=== PATIENT | female | born 1965 | race African-American/Black ===

== ENCOUNTER 2017-07-05 06:30 | Emergency (ER) | payer MEDICARE, MEDICAID ==
[2017-07-05] MEDS ORDERED: oxyCODONE/Acetamin 5/325 MG* TAB PO ONE (07:23)
--- NOTE | 2017-07-05 08:31 | RAD ---
Indication: Left flank pain, left lower quadrant pain. CT of the abdomen and pelvis was performed without oral and IV contrast administration. Coronal and sagittal reconstructed images were obtained. Lung bases demonstrate no pleural fluid, nodules or masses. It is normal size without evidence of pericardial effusion. Liver is normal in size. No focal lesions or intrahepatic ductal dilatation. The gallbladder demonstrates no calcified gallstones. No pericholecystic fluid or wall thickening is noted. Spleen is normal in size. Pancreas demonstrates no mass or pancreatic ductal dilatation. Common duct is not dilated. No adrenal lesions are noted. The kidneys demonstrates no hydronephrosis although nonobstructing calculi are noted in the lower pole of the right kidney. Atherosclerotic aorta is noted. No dilated loops of bowel are noted. CT of the pelvis demonstrates: To be filled with stool. No dilated loops of bowel are noted. No hernias are noted. No free fluid is identified. Appendix is visualized and is normal. IMPRESSION: No evidence of obstructive uropathy is noted. Colon is filled with stool. No abnormal masses or fluid collections are noted.
--- NOTE | 2017-07-05 08:34 | RAD ---
Indication: Left flank pain. CT of the lumbar spine was obtained in the axial plane. Sagittal and coronal reconstructed images were obtained. The vertebral bodies appear normal in height. No evidence of fracture is noted. No evidence of facet arthropathy is noted. No fractures noted. Vertebral bodies appear normal in height and alignment. Transverse processes are unremarkable. No fracture is noted. No retroperitoneal adenopathy is noted. IMPRESSION: No fracture of lumbar spine is noted.
[2017-07-05 08:39] LABS: Urine Bacteria Absent (Absent); Urine Bilirubin Negative (Negative); Urine Glucose 2+(150 mg/dL) (Negative); Urine Nitrite Negative (Negative)
[2017-07-05 09:07] LABS: ALT 18 U/L (7-52); AST 23 U/L (13-39); Albumin 3.7 g/dL (3.2-5.2); Alkaline Phosphatase 58 U/L (34-104); Blood Urea Nitrogen 22 mg/dL (6-24); C Reactive Protein 19.58 mg/L (< 5.00); CO2 Carbon Dioxide 16 mmol/L (22-32); EGFR African American 110.7 (>60); EGFR Non-African American 86.1 (>60); Globulin 3.2 g/dL (2-4); Glucose 155 mg/dL (70-100); Lipase < 10 U/L (11.0-82.0); Total Protein 6.9 g/dL (6.4-8.9)
[2017-07-05 09:23] LABS: Anion Gap 10 mmol/L (2-11); Chloride 109 mmol/L (101-111); Sodium 135 mmol/L (133-145)
[2017-07-05] MEDS ORDERED: Ketorolac INJ* 30 MG/ML 1 ML VIAL IV PUSH ONE (09:25)
[2017-07-05] MEDS ORDERED: Morphine INJ* 4 MG/ML 1 ML CARPUJECT IV ONE (09:25)
[2017-07-05] MEDS ORDERED: Orphenadrine Citrate IV* 30 MG/ML 2 ML VIAL IV ONE (09:25)
[2017-07-05] MEDS ORDERED: Ondansetron INJ* 2 MG/ML VIAL IV ONE ×2 (10:16→13:21)
[2017-07-05] MEDS ORDERED: NS 0.9% 1000 ML* 1,000 ML IV ONE (10:16)
[2017-07-05] MEDS ORDERED: Ondansetron INJ* 2 MG/ML VIAL ONE (10:17)
[2017-07-05 10:36] LABS: Add Diff/Slide Review? Slide Review Added; Comments Flag Yes; Hematocrit 35 % (35-47); Mean Corpuscular HGB Conc 32 g/dl (31-36); Mean Corpuscular Hemoglobin 25 pg (27-31); Mean Corpuscular Volume 77 fL (80-97); Mean Platelet Volume 8 um3 (7.4-10.4); Red Blood Count 4.47 10^6/ul (4.0-5.4); Red Cell Distribution Width 20 % (10.5-15); White Blood Count 14.6 10^3/ul (3.5-10.8)
[2017-07-05 13:49] VITALS: BP 115/76
--- NOTE | 2017-07-05 18:02 | ED ---
Michelle Muse Thomas, scribed for Sonny Mary MD on 07/05/17 at 0728 . Back Pain - HPI Summary HPI Summary: The pt is a 52 y/o F BIBA and c/o left flank pain with sudden onset yesterday at 16:30. The patient was lifting a mattress with a friend when the pain suddenly began. She also complains of LLQ abd pain and L hip pain, although these pains have onset after her back pain. The pain is constant. The pain is rated 10/10. The pain is aggravated by movement. It is alleviated by nothing. The patient has treated the pain with Ibuprofen 800mg yesterday at 16:30 and a heating pad as well. Pt additionally c/o R leg numbness. She denies prior back injuries. She is on Lisinopril, Glipizide, and Metformin. PMHx: DM, HTN, HLD. PSHx: facial repair. SHx: current smoker, no alcohol, no drugs. FHx: DM, HTN. - History of Current Complaint Chief Complaint: EDBackInjuryPain Stated Complaint: BACK PAIN Time Seen by Provider: 07/05/17 07:08 Hx Obtained From: Patient Onset/Duration: Sudden Onset, Lasting Hours - onset yesterday at 16:30, Still Present Onset/Duration: Still Present Timing: Constant Back Pain Location: Is Discrete @ - L flank Severity Currently: Severe Pain Intensity: 10 Pain Scale Used: 0-10 Numeric Aggravating Symptom(s): Movement Alleviating Symptom(s): Nothing Associated Signs And Symptoms: Positive: Numbness - in her L leg, Other - LLQ abd pain, L hip pain - Allergies/Home Medications Allergies/Adverse Reactions: Allergies Allergy/AdvReac Type Severity Reaction Status Date / Time Aspirin Allergy Rash Verified 07/05/17 06:47 Home Medications: Home Medications Carisoprodol TAB* [Soma TAB*] 350 mg PO TID PRN 07/05/17 [History Confirmed ] glipiZIDE TAB.XL* [Glucotrol XL*] 5 mg PO QAM 07/05/17 [History Confirmed ] metFORMIN* [Glucophage 500 MG TAB *] 500 mg PO BID 07/05/17 [History Confirmed 07/05/17] PMH/Surg Hx/FS Hx/Imm Hx Previously Healthy: No Endocrine/Hematology History: Reports: Hx Diabetes Cardiovascular History: Reports: Hx Hypercholesterolemia, Hx Hypertension Musculoskeletal History: Reports: Other Musculoskeletal History - shoulder surgery - Surgical History Surgery Procedure, Year, and Place: Facial repair Infectious Disease History: Yes Infectious Disease History: Denies: Traveled Outside the [place] in Last 30 Days - Family History Known Family History: Positive: Hypertension, Diabetes - Social History Occupation: Employed Full-time Alcohol Use: None Hx Substance Use: No Substance Use Type: Reports: None Hx Tobacco Use: Yes Smoking Status (MU): Current Every Day Smoker Review of Systems Negative: Fever Positive: Abdominal Pain - LLQ Positive: Other - L flank pain, L hip pain Positive: Numbness - in L leg All Other Systems Reviewed And Are Negative: Yes Physical Exam - Summary Physical Exam Summary: VITAL SIGNS: Reviewed. GENERAL: Patient is a well-developed and nourished female who is lying comfortable in the stretcher. Patient is not in any acute respiratory distress. HEAD AND FACE: No signs of trauma. No ecchymosis, hematomas or skull depressions. No sinus tenderness. EYES: PERRLA, EOMI x 2, No injected conjunctiva, no nystagmus. EARS: Hearing grossly intact. Ear canals and tympanic membranes are within normal limits. MOUTH: Oropharynx within normal limits. NECK: Supple, trachea is midline, no adenopathy, no JVD, no carotid bruit, no c- spine tenderness, neck with full ROM. CHEST: Symmetric, no tenderness at palpation LUNGS: Clear to auscultation bilaterally. No wheezing or crackles. CVS: Regular rate and rhythm, S1 and S2 present, no murmurs or gallops appreciated. ABDOMEN: She has left flank pain. She has LLQ tenderness. She has left paraspinal muscle tenderness. Soft. No signs of distention. No rebound no guarding, and no masses palpated. Bowel sounds are normal. EXTREMITIES: FROM in all major joints, no edema, no cyanosis or clubbing. NEURO: Alert and oriented x 3. No acute neurological deficits. Speech is normal and follows commands. SKIN: Dry and warm Triage Information Reviewed: Yes Vital Signs On Initial Exam: Initial Vitals Temp Pulse Resp BP Pulse Ox 98.8 F 70 16 173/65 97 07/05/17 06:34 07/05/17 06:34 07/05/17 06:34 07/05/17 06:34 07/05/17 06:34 Vital Signs Reviewed: Yes - [place] Coma Scale Coma Scale Total: 15 Diagnostics - Vital Signs Vital Signs Temp Pulse Resp BP Pulse Ox 07/05/17 06:38 71 97 07/05/17 06:36 173/65 07/05/17 06:34 98.8 F 70 16 173/65 97 - Laboratory Lab Results: Lab Results 07/05/17 07/05/17 07/05/17 Range/Units 07:35 08:14 10:15 WBC 14.6 H (3.5-10.8) 10^3/ul RBC 4.47 (4.0-5.4) 10^6/ul Hgb 11.0 L (12.0-16.0) g/dl Hct 35 (35-47) % MCV 77 L (80-97) fL MCH 25 L (27-31) pg MCHC 32 (31-36) g/dl RDW 20 H (10.5-15) % Plt Count 328 (150-450) 10^3/ul MPV 8 (7.4-10.4) um3 Neut % (Auto) 84.5 H (38-83) % Lymph % (Auto) 4.2 L (25-47) % [place] % (Auto) 11.0 H (1-9) % Eos % (Auto) 0 (0-6) % Baso % (Auto) 0.3 (0-2) % Absolute Neuts (auto) 12.4 H (1.5-7.7) 10^3/ul Absolute Lymphs (auto) 0.6 L (1.0-4.8) 10^3/ul Absolute Monos (auto) 1.6 H (0-0.8) 10^3/ul Absolute Eos (auto) 0 (0-0.6) 10^3/ul Absolute Basos (auto) 0 (0-0.2) 10^3/ul Absolute Nucleated RBC 0 10^3/ul Nucleated RBC % 0 Sodium 135 (133-145) mmol/L Potassium 4.0 (3.5-5.0) mmol/L Chloride 109 (101-111) mmol/L Carbon Dioxide 16 L (22-32) mmol/L Anion Gap 10 (2-11) mmol/L BUN 22 (6-24) mg/dL Creatinine 0.71 (0.51-0.95) mg/dL Est GFR ( Amer) 110.7 (>60) Est GFR (Non-Af Amer) 86.1 (>60) BUN/Creatinine Ratio 31.0 H (8-20) Glucose 155 H (70-100) mg/dL Calcium 9.0 (8.6-10.3) mg/dL Total Bilirubin 0.20 (0.2-1.0) mg/dL AST 23 (13-39) U/L ALT 18 (7-52) U/L Alkaline Phosphatase 58 (34-104) U/L C-Reactive Protein 19.58 H (< 5.00) mg/L Total Protein 6.9 (6.4-8.9) g/dL Albumin 3.7 (3.2-5.2) g/dL Globulin 3.2 (2-4) g/dL Albumin/Globulin Ratio 1.2 (1-3) Lipase < 10 L (11.0-82.0) U/L Urine Color Yellow Urine Appearance Clear Urine pH 6.0 (5-9) Ur Specific [place] 1.021 (1.010-1.030) Urine Protein 1+(30 mg/dl) H (Negative) Urine Ketones Negative (Negative) Urine Blood Negative (Negative) Urine Nitrate Negative (Negative) Urine Bilirubin Negative (Negative) Urine Urobilinogen Negative (Negative) Ur Leukocyte Esterase Negative (Negative) Urine WBC (Auto) Trace(0-5/hpf) (Absent) Urine RBC (Auto) Trace(0-2/hpf) (Absent) Ur Squamous Epith Cells Present H (Absent) Urine Bacteria Absent (Absent) Urine Glucose 2+(150 mg/dl) H (Negative) Result Diagrams: 07/05/17 10:15 07/05/17 08:14 Lab Statement: Any lab studies that have been ordered have been reviewed, and results considered in the medical decision making process. - CT CT L-Spine CT Interpretation: No Acute Changes - CT L-Spine shows no fracture of lumbar spine is noted. ED physician has read this report and agrees. CT Interpretation Completed By: Radiologist CT Abd/Pel CT Interpretation: No Acute Changes - CT Abd/Pel shows no evidence of obstructive uropathy is noted. Colon is filled with stool. No abnormal masses or fluid collections are noted. ED physician has read this report and agrees. CT Interpretation Completed By: Radiologist Re-Evaluation - Re-Evaluation First Eval Re-Evaluation Time: 12:00 Change: Unchanged Comment: The patient's daughter is present. The patient and her daughter were informed of the CT results. We discussed discharge plans and follow up. Back Pain Course/Dx - Course Assessment/Plan: The pt is a 52 y/o F BIBA and c/o left flank pain with sudden onset yesterday at 16:30. The patient was lifting a mattress with a friend when the pain suddenly began. She also complains of LLQ abd pain and L hip pain, although these pains have onset after her back pain. The pain is constant. The pain is rated 10/10. The pain is aggravated by movement. It is alleviated by nothing. The patient has treated the pain with Ibuprofen 800mg yesterday at 16: 30 and a heating pad as well. Pt additionally c/o R leg numbness. She denies prior back injuries. She is on Lisinopril, Glipizide, and Metformin. PMHx: DM, HTN, HLD. PSHx: facial repair. SHx: current smoker, no alcohol, no drugs. FHx: DM, HTN. Test results are without significant abnormalities except WBC 14.6 without any bands, Hgb 11.0, glucose 155, CRP 19.58. UA is negative for UTI. I had a difficult time examining the patient, therefore since the patient complains of LLQ pain I decided to do a CT Abd/Pel to rule out diverticulitis, kidney stones, and any other intraabdominal pathology. CT Abd/Pel shows no evidence of obstructive uropathy is noted. Colon is filled with stool. No abnormal masses or fluid collections are noted. ED physician has read this report and agrees. However, the patient reported the back pain had onset after heavy lifting, therefore I ordered a CT L-spine. In the ED course, the patient was negative for UTI. The patient was given IV fluids, Zofran, morphine, and Toradol for the pain. After these medications, the patient is ambulating and tolerating PO intake. Therefore, the patient will be discharged home with follow up by PCP. I believe the symptoms are more secondary to lumbar strain. The patient was instructed to return to the emergency room if any new or worsening symptoms. The patient is hemodynamically stable and alert and oriented x3. - Diagnoses Differential Diagnosis/HQI/PQRI: Positive: Compressive Cord Syndrome, Fracture, Herniated Disc, Osteoporosis, Renal Colic, Strain, Sprain Provider Diagnoses: Lower back pain, Abdominal pain Discharge - Discharge Plan Condition: Stable Disposition: HOME Prescriptions: Cyclobenzaprine TAB* [Flexeril 10 MG TAB*] 10 mg PO TID #12 tab HYDROcodone/ACETAMIN 5-325 MG* [[place] 5-325 TAB*] 1 tab PO Q8H PRN #12 tab MDD 4 PRN Reason: Pain Ibuprofen TAB* [Motrin TAB* 600 MG] 600 mg PO Q8H PRN #20 tab PRN Reason: Pain Ondansetron TAB* [Zofran 4 MG Tab*] 4 mg PO Q6H PRN #10 tab PRN Reason: Vomiting Patient Education Materials: Abdominal Pain (ED), Back Pain (ED) Forms: *Work Release Referrals: Andres Nguyen MD [Primary Care Provider] - 2 Days The documentation as recorded by the Michelle urias Thomas accurately reflects the service I personally performed and the decisions made by Usman davis Walter, MD.
== END 2017-07-05 13:47 | disposition home or self-care (01) ==
LOC: ED 06:30
DX: R10.32 Left lower quadrant pain (principal); F17.210 Nicotine dependence, cigarettes, uncomplicated; M54.5 Low back pain
CPT/HCPCS: 36415; 72131; 74176; 80053; 81003; 81015; 83690; 85025; 86140; 96374; 96375; 99285; A9270-GY; J1885; J2270; J2360; J2405

== ENCOUNTER 2017-07-06 08:51 | Inpatient (IN) | payer MEDICARE, MEDICAID ==
[2017-07-06] MEDS ORDERED: NS 0.9% 1000 ML* 1,000 ML IV ONE (10:57)
[2017-07-06] MEDS ORDERED: Ondansetron INJ* 2 MG/ML VIAL ONE (11:17)
[2017-07-06] MEDS ORDERED: Ondansetron INJ* 2 MG/ML VIAL IV ONE (11:25)
[2017-07-06 11:58] LABS: Hematocrit 35 % (35-47); Hemoglobin 11.3 g/dl (12.0-16.0); Mean Corpuscular HGB Conc 32 g/dl (31-36); Mean Corpuscular Hemoglobin 25 pg (27-31); Mean Corpuscular Volume 77 fL (80-97); Mean Platelet Volume 8 um3 (7.4-10.4); Red Blood Count 4.52 10^6/ul (4.0-5.4); Red Cell Distribution Width 20 % (10.5-15); White Blood Count 18.5 10^3/ul (3.5-10.8)
[2017-07-06 12:04] LABS: ALT 17 U/L (7-52); AST 15 U/L (13-39); Albumin 3.9 g/dL (3.2-5.2); Alkaline Phosphatase 74 U/L (34-104); Anion Gap 8 mmol/L (2-11); BUN/Creatinine Ratio 32.8 (8-20); Blood Urea Nitrogen 21 mg/dL (6-24); CO2 Carbon Dioxide 28 mmol/L (22-32); Calcium 9.4 mg/dL (8.6-10.3); Chloride 101 mmol/L (101-111); Creatine Kinase 57 U/L (10-223); EGFR African American 124.8 (>60); EGFR Non-African American 97.1 (>60); Globulin 3.7 g/dL (2-4); Glucose 179 mg/dL (70-100); Lipase < 10 U/L (11.0-82.0); Magnesium 2.2 mg/dL (1.9-2.7); Potassium 3.3 mmol/L (3.5-5.0); Sodium 137 mmol/L (133-145); Total Protein 7.6 g/dL (6.4-8.9)
[2017-07-06 12:05] LABS: Ammonia 45 mol/L (16-53)
[2017-07-06 12:10] LABS: B Type Natriuretic Peptide 152 pg/mL
[2017-07-06 12:32] LABS: Acetaminophen < 15 mcg/mL; Alcohol < 10 mg/dL (<10)
--- NOTE | 2017-07-06 13:12 | RAD ---
HISTORY: Altered mental status, elevated white blood cell count COMPARISONS: November 25, 2013 VIEWS: 1: frontal portable view of the chest at 12:55 PM FINDINGS: LINES AND TUBES: None. CARDIOMEDIASTINAL SILHOUETTE: The cardiomediastinal silhouette is normal for portable technique. PLEURA: The costophrenic angles are sharp. No pleural abnormalities are noted. LUNG PARENCHYMA: The lungs are clear. ABDOMEN: The upper abdomen is clear. There is no subphrenic gas. BONES AND SOFT TISSUES: No bone or soft tissue abnormalities are noted. IMPRESSION: NO ACTIVE CARDIOPULMONARY DISEASE.
[2017-07-06 13:24] LABS: Urine Bacteria Absent (Absent); Urine Bilirubin Negative (Negative); Urine Glucose 1+(50 mg/dL) (Negative); Urine Nitrite Negative (Negative)
[2017-07-06] MEDS ORDERED: Azithromycin IV(*) 500 MG in NS 0.9% 250 ML* 250 ML IVPB ONE (13:31)
[2017-07-06] MEDS ORDERED: cefTRIAXone(*) 1 GM in NS 0.9% 50 ML* 50 ML IVPB ONE (13:31)
--- NOTE | 2017-07-06 13:35 | ED ---
Yoandy Muse Angela, scribed for Sonny Morillo MD on 07/06/17 at 1038 . Complex/Multi-Sys Presentation - HPI Summary HPI Summary: This pt is a 52 y/o female BIBA presenting to [facility] c/o nausea and vomiting since yesterday. Yesterday, pt was seen in the ED for back and abd pain, and per daughter, pt was lethargic. Pt was given pain medications (oxycodone, clyclobenzaprine, ibuprofen, and Zofran), which she states has been making her vomit and has had confusion since then. Although, she notes her pain was alleviated. She reports she was incoherent and this is the most awake she has been since yesterday. Pt's pain began 2 days ago (on Monday) at 1630 and describes left sided abd pain that radiates to her left leg after lifting a mattress. On Monday her mind was clear. Per daughter, pt vomited yesterday after she was discharged and had diarrhea throughout the past few days. Per son , pt was at her house yesterday and pt didn't remember this. Pt denies numbness , weakness in LE. Pt states taking Soma yesterday for her shoulders, and has been taking Soma for the past few months. PMHx: diabetes. - History Of Current Complaint Chief Complaint: EDNauseaVomitDiarrh Time Seen by Provider: 07/06/17 10:08 Hx Obtained From: Patient Onset/Duration: Lasting Days - 1 Timing: Days - 1 Associated Signs And Symptoms: Positive: Confusion, Nausea, Vomiting, Back Pain , Other - abd pain. Negative: Chest Pain - Allergies/Home Medications Allergies/Adverse Reactions: Allergies Allergy/AdvReac Type Severity Reaction Status Date / Time Aspirin Allergy Rash Verified 07/06/17 09:16 PMH/Surg Hx/FS Hx/Imm Hx Endocrine/Hematology History: Reports: Hx Diabetes Cardiovascular History: Reports: Hx Hypercholesterolemia, Hx Hypertension Musculoskeletal History: Reports: Other Musculoskeletal History - shoulder surgery - Surgical History Surgery Procedure, Year, and Place: Facial repair Infectious Disease History: No Infectious Disease History: Denies: Traveled Outside the [place] in Last 30 Days - Family History Known Family History: Positive: Hypertension, Diabetes - Social History Alcohol Use: None Hx Substance Use: No Substance Use Type: Reports: None Hx Tobacco Use: Yes Smoking Status (MU): Current Every Day Smoker Review of Systems Positive: Fatigue, Other - confusion. Negative: Fever, Chills Eyes: Negative Negative: Chest Pain Negative: Shortness Of Breath Positive: Abdominal Pain, Vomiting, Diarrhea, Nausea Genitourinary: Negative Positive: Other - back pain Skin: Negative Neurological: Other - incoherent Negative: Headache All Other Systems Reviewed And Are Negative: Yes Physical Exam - Summary Physical Exam Summary: General: well-appearing, no pain distress Skin: warm, color reflects adequate perfusion, dry Head: normal Eyes: EOMI, CARLIE ENT: normal Neck: supple, nontender Respiratory: CTA, breath sounds present Cardiovascular: RRR Abdomen: soft, mild tenderness in the LLQ. Bowel: present Musculoskeletal: strength/ROM intact. Tender in the low back on the left lumbar. Leg has good ROM. There is pain with hip flezion. Neurological: normal, sensory/motor intact, A&O x3. Motor strength is 5/5 in UE and LE bilaterally. Normal patellar reflexes. No sensation deficits. Psychological: affect/mood appropriate Triage Information Reviewed: Yes Vital Signs On Initial Exam: Initial Vitals Pulse Pulse Ox 74 94 07/06/17 08:59 07/06/17 08:59 Temperature: 99.3 F Respiratory rate: 16 Blood pressure: 178/78 Vital Signs Reviewed: Yes - [place] Coma Scale Coma Scale Total: 14 Diagnostics - Vital Signs Vital Signs Temp Pulse Resp BP Pulse Ox 07/06/17 09:00 99.3 F 73 16 192/75 96 07/06/17 08:59 74 94 - Laboratory Lab Results: Lab Results 07/06/17 07/06/17 07/06/17 Range/Units 11:37 11:37 11:37 WBC (3.5-10.8) 10^3/ul RBC (4.0-5.4) 10^6/ul Hgb (12.0-16.0) g/dl Hct (35-47) % MCV (80-97) fL MCH (27-31) pg MCHC (31-36) g/dl RDW (10.5-15) % Plt Count (150-450) 10^3/ul MPV (7.4-10.4) um3 Neut % (Auto) (38-83) % Lymph % (Auto) (25-47) % Will % (Auto) (1-9) % Eos % (Auto) (0-6) % Baso % (Auto) (0-2) % Absolute Neuts (auto) (1.5-7.7) 10^3/ul Absolute Lymphs (auto) (1.0-4.8) 10^3/ul Absolute Monos (auto) (0-0.8) 10^3/ul Absolute Eos (auto) (0-0.6) 10^3/ul Absolute Basos (auto) (0-0.2) 10^3/ul Absolute Nucleated RBC 10^3/ul Nucleated RBC % INR (Anticoag Therapy) 1.19 H (0.89-1.11) APTT 25.2 L (26.0-36.3) seconds Carbon Monoxide Screen (<4.0) % Sodium 137 (133-145) mmol/L Potassium 3.3 L (3.5-5.0) mmol/L Chloride 101 (101-111) mmol/L Carbon Dioxide 28 (22-32) mmol/L Anion Gap 8 (2-11) mmol/L BUN 21 (6-24) mg/dL Creatinine 0.64 (0.51-0.95) mg/dL Est GFR ( Amer) 124.8 (>60) Est GFR (Non-Af Amer) 97.1 (>60) BUN/Creatinine Ratio 32.8 H (8-20) Glucose 179 H (70-100) mg/dL Lactic Acid 1.3 (0.5-2.0) mmol/L Calcium 9.4 (8.6-10.3) mg/dL Magnesium 2.2 (1.9-2.7) mg/dL Total Bilirubin 0.30 (0.2-1.0) mg/dL AST 15 (13-39) U/L ALT 17 (7-52) U/L Alkaline Phosphatase 74 (34-104) U/L Ammonia (16-53) mol/L Total Creatine Kinase 57 (10-223) U/L CK-MB (CK-2) 1.7 (0.6-6.3) ng/mL Troponin I 0.00 (<0.04) ng/mL C-Reactive Protein 217.10 H (< 5.00) mg/L B-Natriuretic Peptide ( - 100) pg/mL Total Protein 7.6 (6.4-8.9) g/dL Albumin 3.9 (3.2-5.2) g/dL Globulin 3.7 (2-4) g/dL Albumin/Globulin Ratio 1.1 (1-3) Lipase < 10 L (11.0-82.0) U/L TSH 0.50 (0.34-5.60) mcIU/mL Urine Color Urine Appearance Urine pH (5-9) Ur Specific [place] (1.010-1.030) Urine Protein (Negative) Urine Ketones (Negative) Urine Blood (Negative) Urine Nitrate (Negative) Urine Bilirubin (Negative) Urine Urobilinogen (Negative) Ur Leukocyte Esterase (Negative) Urine WBC (Auto) (Absent) Urine RBC (Auto) (Absent) Ur Squamous Epith Cells (Absent) Urine Bacteria (Absent) Hyaline Casts (Absent) Urine Glucose (Negative) Salicylates Pending Acetaminophen < 15 mcg/mL Serum Alcohol < 10 (<10) mg/dL 07/06/17 07/06/17 07/06/17 Range/Units 11:37 11:37 12:45 WBC 18.5 H (3.5-10.8) 10^3/ul RBC 4.52 (4.0-5.4) 10^6/ul Hgb 11.3 L (12.0-16.0) g/dl Hct 35 (35-47) % MCV 77 L (80-97) fL MCH 25 L (27-31) pg MCHC 32 (31-36) g/dl RDW 20 H (10.5-15) % Plt Count 342 (150-450) 10^3/ul MPV 8 (7.4-10.4) um3 Neut % (Auto) 89.4 H (38-83) % Lymph % (Auto) 2.6 L (25-47) % Will % (Auto) 7.7 (1-9) % Eos % (Auto) 0 (0-6) % Baso % (Auto) 0.3 (0-2) % Absolute Neuts (auto) 16.5 H (1.5-7.7) 10^3/ul Absolute Lymphs (auto) 0.5 L (1.0-4.8) 10^3/ul Absolute Monos (auto) 1.4 H (0-0.8) 10^3/ul Absolute Eos (auto) 0 (0-0.6) 10^3/ul Absolute Basos (auto) 0.1 (0-0.2) 10^3/ul Absolute Nucleated RBC 0.01 10^3/ul Nucleated RBC % 0.1 INR (Anticoag Therapy) (0.89-1.11) APTT (26.0-36.3) seconds Carbon Monoxide Screen (<4.0) % Sodium (133-145) mmol/L Potassium (3.5-5.0) mmol/L Chloride (101-111) mmol/L Carbon Dioxide (22-32) mmol/L Anion Gap (2-11) mmol/L BUN (6-24) mg/dL Creatinine (0.51-0.95) mg/dL Est GFR ( Amer) (>60) Est GFR (Non-Af Amer) (>60) BUN/Creatinine Ratio (8-20) Glucose (70-100) mg/dL Lactic Acid (0.5-2.0) mmol/L Calcium (8.6-10.3) mg/dL Magnesium (1.9-2.7) mg/dL Total Bilirubin (0.2-1.0) mg/dL AST (13-39) U/L ALT (7-52) U/L Alkaline Phosphatase (34-104) U/L Ammonia 45 (16-53) mol/L Total Creatine Kinase (10-223) U/L CK-MB (CK-2) (0.6-6.3) ng/mL Troponin I (<0.04) ng/mL C-Reactive Protein (< 5.00) mg/L B-Natriuretic Peptide 152 H ( - 100) pg/mL Total Protein (6.4-8.9) g/dL Albumin (3.2-5.2) g/dL Globulin (2-4) g/dL Albumin/Globulin Ratio (1-3) Lipase (11.0-82.0) U/L TSH (0.34-5.60) mcIU/mL Urine Color Yellow Urine Appearance Cloudy Urine pH 6.0 (5-9) Ur Specific [place] 1.026 (1.010-1.030) Urine Protein 3+(>=500 mg/dl) H (Negative) Urine Ketones Trace H (Negative) Urine Blood 1+ H (Negative) Urine Nitrate Negative (Negative) Urine Bilirubin Negative (Negative) Urine Urobilinogen Negative (Negative) Ur Leukocyte Esterase Negative (Negative) Urine WBC (Auto) Trace(0-5/hpf) (Absent) Urine RBC (Auto) 3+(>10/hpf) H (Absent) Ur Squamous Epith Cells Present H (Absent) Urine Bacteria Absent (Absent) Hyaline Casts Present H (Absent) Urine Glucose 1+(50 mg/dl) H (Negative) Salicylates Acetaminophen mcg/mL Serum Alcohol (<10) mg/dL 07/06/17 Range/Units 12:45 WBC (3.5-10.8) 10^3/ul RBC (4.0-5.4) 10^6/ul Hgb (12.0-16.0) g/dl Hct (35-47) % MCV (80-97) fL MCH (27-31) pg MCHC (31-36) g/dl RDW (10.5-15) % Plt Count (150-450) 10^3/ul MPV (7.4-10.4) um3 Neut % (Auto) (38-83) % Lymph % (Auto) (25-47) % Will % (Auto) (1-9) % Eos % (Auto) (0-6) % Baso % (Auto) (0-2) % Absolute Neuts (auto) (1.5-7.7) 10^3/ul Absolute Lymphs (auto) (1.0-4.8) 10^3/ul Absolute Monos (auto) (0-0.8) 10^3/ul Absolute Eos (auto) (0-0.6) 10^3/ul Absolute Basos (auto) (0-0.2) 10^3/ul Absolute Nucleated RBC 10^3/ul Nucleated RBC % INR (Anticoag Therapy) (0.89-1.11) APTT (26.0-36.3) seconds Carbon Monoxide Screen < 4 (<4.0) % Sodium (133-145) mmol/L Potassium (3.5-5.0) mmol/L Chloride (101-111) mmol/L Carbon Dioxide (22-32) mmol/L Anion Gap (2-11) mmol/L BUN (6-24) mg/dL Creatinine (0.51-0.95) mg/dL Est GFR ( Amer) (>60) Est GFR (Non-Af Amer) (>60) BUN/Creatinine Ratio (8-20) Glucose (70-100) mg/dL Lactic Acid (0.5-2.0) mmol/L Calcium (8.6-10.3) mg/dL Magnesium (1.9-2.7) mg/dL Total Bilirubin (0.2-1.0) mg/dL AST (13-39) U/L ALT (7-52) U/L Alkaline Phosphatase (34-104) U/L Ammonia (16-53) mol/L Total Creatine Kinase (10-223) U/L CK-MB (CK-2) (0.6-6.3) ng/mL Troponin I (<0.04) ng/mL C-Reactive Protein (< 5.00) mg/L B-Natriuretic Peptide ( - 100) pg/mL Total Protein (6.4-8.9) g/dL Albumin (3.2-5.2) g/dL Globulin (2-4) g/dL Albumin/Globulin Ratio (1-3) Lipase (11.0-82.0) U/L TSH (0.34-5.60) mcIU/mL Urine Color Urine Appearance Urine pH (5-9) Ur Specific [place] (1.010-1.030) Urine Protein (Negative) Urine Ketones (Negative) Urine Blood (Negative) Urine Nitrate (Negative) Urine Bilirubin (Negative) Urine Urobilinogen (Negative) Ur Leukocyte Esterase (Negative) Urine WBC (Auto) (Absent) Urine RBC (Auto) (Absent) Ur Squamous Epith Cells (Absent) Urine Bacteria (Absent) Hyaline Casts (Absent) Urine Glucose (Negative) Salicylates Acetaminophen mcg/mL Serum Alcohol (<10) mg/dL Result Diagrams: 07/06/17 11:37 07/06/17 11:37 Lab Statement: Any lab studies that have been ordered have been reviewed, and results considered in the medical decision making process. - EKG 1111 Cardiac Rate: NL - 79 bpm EKG Rhythm: Sinus Rhythm ST Segment: Normal Ectopy: None EKG Interpretation: LVH Complex Multi-Symp Course/Dx Course Of Treatment: Pt is a 52 y/o female BIBA presenting to [facility] c/o nausea and vomiting since yesterday after given medications for abd pain and back pain (oxycodone, clyclobenzaprine, ibuprofen, and Zofran). Pt additionally had taken Soma at home, prescribed by PCP for months now. Medications reviewed. BP noted and advised to follow up with PCP. WILL TREAT URI/BRONCHITS SX WITH ABX. DUE TO ALTERED MENTAL STATE AND INCREASING WBC AND CRP; ADMIT HOSPITALIST. NO CRITICAL CARE TIME. - Diagnoses Provider Diagnoses: Altered mental state, Bronchitis, Low back pain Discharge - Discharge Plan Condition: Stable Disposition: ADMITTED TO [facility] Referrals: Andres Nguyen MD [Primary Care Provider] - The documentation as recorded by the Yoandy urias Angela accurately reflects the service I personally performed and the decisions made by me, Sonny Morillo MD.
[2017-07-06 13:36] LABS: Benzodiazepine Urine Screen None Detected (None Detect)
[2017-07-06 13:51] LABS: Salicylate < 2.50 mg/dL (<30)
[2017-07-06] MEDS ORDERED: Vancomycin(*) 1,250 MG in NS 0.9% 250 ML* 250 ML IVPB ONE (15:15)
[2017-07-06] MEDS ORDERED: Dextrose 50% Syringe 50 ML* 25 GM/50 ML SYRINGE IV PUSH PRN (15:19)
[2017-07-06] MEDS ORDERED: Metoprolol Tartrate TAB* 25 MG PO ONE (15:21)
[2017-07-06] MEDS ORDERED: Morphine INJ* 2 MG/ML 1 ML CARPUJECT IV PRN (15:22)
[2017-07-06] MEDS ORDERED: Magnesium CITRATE* 300 ML BTL PO ONE (15:38)
[2017-07-06] MEDS ORDERED: Gadoteridol* (CONTRAST) 279.3 MG/ML 10 ML IV SCH (16:06)
--- NOTE | 2017-07-06 17:12 | RAD ---
INDICATION: Back pain. COMPARISON: Comparison is made with a prior CT of the lumbar spine from July 05, 2017. Correlation is also made with a prior CT of the abdomen and pelvis from July 05, 2017. TECHNIQUE: Axial and sagittal T1 and T2 and coronal T2-weighted images of the lumbar spine were obtained. In addition axial and sagittal T1-weighted images were obtained following intravenous injection of 15 ml of ProHance nonionic contrast. FINDINGS: The vertebra are in normal alignment. There are effusions within the L4-L5 facet joints. There is edema and abnormal enhancement in the surrounding paraspinal soft tissues adjacent to the L4-L5 and L5-S1 facet joints left greater than right. These findings are nonspecific although may indicate a septic arthritis, osteomyelitis and myositis. Recommend clinical correlation. There is minimal adjacent epidural enhancement although no epidural abscess is seen. In addition there is edema present bilaterally in the perinephric spaces which is not seen on the recent prior CT of the abdomen suggesting the possibility of pyelonephritis. At the L4-L5 level there is a mild broad-based disc bulge and mild hypertrophic changes within the facet joints. There is mild spinal canal narrowing. Neural foramen appear patent on both sides. The L5-S1 level there is also a minimal broad-based disc bulge and mild hypertrophic changes within the facet joints. No spinal canal or neural foraminal narrowing is seen. The results of this exam were discussed with the referring clinician. IMPRESSION: 1. THERE ARE EFFUSIONS WITHIN THE L4-L5 FACET JOINTS AND MILD ADJACENT BONE MARROW EDEMA AND ENHANCEMENT WELL IN THE ADJACENT POSTERIOR PARASPINAL MUSCLES EXTENDING DOWN TO THE L5-S1 LEVEL AND MORE PROMINENT ON THE LEFT SIDE SUSPICIOUS FOR SEPTIC ARTHRITIS, OSTEOMYELITIS AND MYOSITIS. RECOMMEND CLINICAL CORRELATION. 2. THERE IS EDEMA IN THE PERINEPHRIC SPACES BILATERALLY SUGGESTING THE POSSIBILITY OF PYELONEPHRITIS. THIS IS A NEW FINDING FROM THE PRIOR CT STUDY.
[2017-07-06] MEDS: Acetaminophen TAB* 325 MG PO PRN (17:37)
[2017-07-06] MEDS: NS 0.9% 1000 ML* 1,000 ML IV SCH (17:38)
[2017-07-06] MEDS: Nicotine PATCH 14 MG/24 HR* PATCH TRANSDERM SCH (18:29)
[2017-07-06] MEDS ORDERED: cefTRIAXone VIAL(*) 1,000 MG in NS 0.9% 50 ML* 50 ML IVPB SCH (18:30)
[2017-07-06] MEDS ORDERED: Vancomycin per Pharmacy* NOTE FOLLOW UP PRN (18:39)
[2017-07-06] MEDS: Insulin LISPRO* 1 UNITS UNIT SUBCUT SCH (18:52)
--- NOTE | 2017-07-06 20:33 | RAD ---
INDICATION: Evaluate for hydronephrosis, abnormal MRI of the lumbar spine including kidneys. COMPARISON: Comparison is made with a prior CT of the abdomen and pelvis from July 05, 2017. TECHNIQUE: Multiple real-time images of the kidneys were obtained. FINDINGS: The kidneys are normal in size shape and echogenicity. The right kidney measured 11.5 x 4.9 x 5.6 cm and the left kidney measured 12.6 x 6.3 x 6.0 cm. There are focal areas of increased echogenicity with twinkle artifact in the inferior pole of the right kidney correlating with small calculi on the prior CT study. No hydronephrosis is present. There is a small amount of fluid noted in the right perirenal space correlating with the MRI findings. IMPRESSION: 1. SMALL AMOUNT OF FLUID IN THE RIGHT PERIRENAL SPACE CORRELATING WITH THE MRI FINDINGS WHICH IS NONSPECIFIC POSSIBLY INDICATING PYELONEPHRITIS. 2. NONOBSTRUCTING RIGHT RENAL CALCULI. 3. NO HYDRONEPHROSIS.
[2017-07-06] MEDS: Docusate CAP* 100 MG PO SCH (20:40)
[2017-07-06] MEDS: Senna TAB PO SCH (20:40)
[2017-07-06] MEDS: Metoprolol Tartrate TAB* 25 MG PO SCH (20:40)
[2017-07-06] MEDS ORDERED: Metoprolol Tartrate TAB* 25 MG PO SCH (21:00)
--- NOTE | 2017-07-06 21:30 | HP ---
CC: Dr. Nguyen* HISTORY AND PHYSICAL: DATE OF ADMISSION: 07/06/17 PRIMARY CARE PROVIDER: Dr. Nguyen. CHIEF COMPLAINT: Back pain and change of mental status. HISTORY OF PRESENT ILLNESS: Ms. 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 She stated that she "pulled her back" few days ago. She presented to our hospital yesterday, and she was prescribed some muscle relaxants. Apparently, she was already on one of them and that resulted in her taking both Soma and Flexeril at the same time. The family noticed today that the patient was somewhat confused and brought her for evaluation. The patient has marked leukocytosis and elevated inflammatory markers. Her CRP is above 200. She still complains of the left lower side back pain, but is less severe now. She appears to have rigors. Her mental status did improve significantly during her stay in the emergency department. Nevertheless, there is a possibility of epidural abscess that needs to be further evaluated or underlying other infection. She is going to be placed on overnight observation for further workup. PAST MEDICAL HISTORY: 1. Diabetes type 2. 2. Hypertension. 3. History of right shoulder surgery in 2016. 4. History of trigger finger release in past. OUTPATIENT MEDICATIONS: Include: 1. Ibuprofen 800 mg on a p.r.n. basis. 2. Hydrocodone with acetaminophen 5/325 mg 1 tablet every 8 hours p.r.n. 3. Flexeril 10 mg 3 times a day p.r.n. 4. Soma 350 mg t.i.d. p.r.n. 5. Metformin 500 mg b.i.d. 6. Glipizide 5 mg daily. 7. Simvastatin 40 mg daily. 8. Zofran on a p.r.n. basis. 9. Omeprazole 20 mg daily. 10. Lisinopril 20 mg daily. ALLERGIES: ASPIRIN causes rash. FAMILY HISTORY: Positive for mother, who of heart disease in her 60s. SOCIAL HISTORY: The patient smokes 10 cigarettes a day. She has been doing so ever since turned 15. Although, she has cocaine resulted on her urine drug screen, she stated that she does not use cocaine on any other illicit substances. She denies any alcohol use. She lives by herself and works inhouse keeping at [employer]. Her surrogate decision maker would be her daughter, Sofía Chester. REVIEW OF SYSTEMS: Please see history of present illness. The patient is a rather poor historian, although right now she is oriented and able to recall what happened. Initially, she appears to have rigors when I evaluated her. When I asked if she feels cold, she stated no, but then 15 minutes later, she said that she did feel cold. She stated that her left lower back pain feels better now. She stated also that she had been constipated and did not have a bowel movement for the past 5 days. She denies any shortness of breath or chest pain. The patient denies any urinary symptoms. The patient stated that for the past 3 years, she has had problems with skin infection that causes her to itch and she scratches a lot. That was not further identified by her physician as per patient's report. All the remaining 14 systems were reviewed with the patient and were otherwise negative. PHYSICAL EXAMINATION GENERAL APPEARANCE: The patient is a very pleasant 52-year-old female, who is in no acute distress. The patient appears to have rigors from time to time during my evaluation. She is alert and oriented x3, rather poor historian. VITAL SIGNS: Blood pressure of 197/66, please note that the patient had rigors when that blood pressure was obtained, pulse rate of 95, respiratory rate 20, oxygen saturation 96% on room air, and temperature of 99.0. HEENT: Head atraumatic, normocephalic. Eyes, pupils are equal, round, and reactive to light and accommodation. Oropharynx clear. Mucosa moist. NECK: Supple. No JVD, no bruits bilaterally. RESPIRATORY: Clear to auscultation bilaterally. CARDIOVASCULAR: Regular rate and rhythm. No murmur. ABDOMEN: Soft, nontender. Bowel sounds present in all 4 quadrants. EXTREMITIES: There is no edema. Pulses are +2 bilaterally. No clubbing or cyanosis. NEURO EVALUATION: Speech is clear. Cranial nerves II through XII are grossly intact. Motor strength is 5/5 bilaterally. SKIN: On evaluation of the skin, the patient has multiple scarred lesion from what appears to be excoriations and picking by herself. She stated that she has a history of chronic skin condition, it causes her to itch and she had been picking on it. The lesions are noted all over the patient's face, upper back, lower back, bilateral arms, and entire legs. PSYCHIATRIC EVALUATION: Rather a poor historian, but oriented x3, pleasant and cooperative with evaluation. DIAGNOSTIC STUDIES/LAB DATA: White blood cell count of 18.5, hemoglobin of 11.3, hematocrit of 35, MCV 77, and platelets of 342. Sodium was 137, potassium 3.3, chloride 101, carbon dioxide 28, BUN 21, creatinine 0.64. Liver function tests were unremarkable. C-reactive protein was 217, yesterday was 19. Brain natriuretic peptide was 152, lipase below 10, TSH of 0.5. Urinalysis showed +3 protein and trace ketones, trace blood, +3 rbc's, absent bacteria, positive for hyaline cast. Portable chest x-ray reviewed by myself and read by the radiologist as unremarkable. The patient's EKG obtained today showed sinus rhythm with a heart rate of 79 beats a minute with voltage criteria for LVH and no significant ST changes. ASSESSMENT AND PLAN: 1. Change of mental status. Likely related to a combination of Soma and Flexeril. At this point, the patient has no meningeal signs and her mental status improved when she was observed in the emergency department with intravenous fluid hydration support. At this point, I do not believe her initial change of mental status that now resolved with supportive care warrants lumbar puncture evaluation. 2. Marked leukocytosis and history of lower back pain. Although, the patient stated that she strained her back at work, I suspect that there is a possibility of epidural abscess that has to be ruled out. The patient has multiple scars all over her body that could be of entry for staphylococcal or streptococcal infection. I will continue the patient on ceftriaxone that was started in the emergency room and add on one dose of vancomycin. Blood cultures were already drawn. An MRI of the lumbar spine is going to be obtained with IV contrast to rule epidural abscess. 3. For the patient's diabetes, the patient's oral hypoglycemics are going to be held as she is going to be placed on insulin sliding scale. 4. For uncontrolled hypertension. Due to the patient being in need of supportive hydration, I will hold her lisinopril and place her on beta-bela. It also has to be mentioned that patient appeared to have rigors during her evaluation that could make the blood pressure measurement inaccurate. 5. For DVT prophylaxis, the patient is going to be placed for moderate risk due to lower back pain and ambulatory dysfunction as well as her age and placed on heparin subcutaneously. Physical Therapy is going to be seeing the patient in evaluation in regards to back pain and ambulatory dysfunction. 7. The patient's code status is full. TIME SPENT: Approximately 65 minutes were spent on admission of this patient, more than half that time was spent [id number] with the patient during the interview and physical exam. ADDENDUM TO HISTORY AND PHYSICAL: Please note the patient's MRI shows possibility of diskitis and septic arthritis of her lumbar spine. The patient developed a fever of 103 degrees. Her ceftriaxone and vancomycin are going to be continued. That was confirmed and discussed with the Infectious Disease specialist, Dr. Pepper. Dr. Pepper will be consulted in the morning. On reevaluation of the patient, the patient has no tenderness in any other joints. Her very mild tenderness in the left lower flank area is "deep." She has no tenderness on palpation of her entire spine. She is alert and oriented on my evaluation despite her temperature of 103 degrees. We will continue to treat the patient with intravenous fluids and antibiotics as above mentioned. [id number]/[facility]PS #: [id number]/CPS #: [id number] MTDD
[2017-07-06] MEDS: HYDROcodone/ACETAMIN 5-325 MG* 1 TAB PO PRN (22:09)
--- NOTE | 2017-07-06 22:35 | HP ---
HISTORY AND PHYSICAL: ADDENDUM: Please note the patient's MRI shows possibility of diskitis and septic arthritis of her l umbar spine. The patient developed a fever of 103 degrees. Her ceftriaxone and vancomycin are kandi g to be continued. That was confirmed and discussed with the Infectious Disease specialist, Dr. Vallejo. Dr. Pepper will be consulted in the morning. On reevaluation of the patient, the patient has no tenderness in any other joints. Her very mild ten derness in the left lower flank area is "deep." She has no tenderness on palpation of her entire sp ine. She is alert and oriented on my evaluation despite her temperature of 103 degrees. We will co ntinue to treat the patient with intravenous fluids and antibiotics as above mentioned. [id number]/[facility] #: [id number]
[2017-07-07] MEDS: Heparin VIAL(*) 5000 UNITS/ML VIAL (FIVE THOUSAND) SUBCUT SCH ×4 (00:04→23:05)
[2017-07-07] MEDS: Nicotine Patch Removal NOTE PATCH OFF SCH ×2 (00:05→23:07)
[2017-07-07] MEDS ORDERED: Vancomycin(*) 1,000 MG in NS 0.9% 250 ML* 250 ML IVPB SCH (04:00)
[2017-07-07] MEDS: HYDROcodone/ACETAMIN 5-325 MG* 1 TAB PO PRN ×2 (07:33→17:53)
[2017-07-07 07:50] LABS: BUN/Creatinine Ratio 30.9 (8-20); Blood Urea Nitrogen 17 mg/dL (6-24); CO2 Carbon Dioxide 21 mmol/L (22-32); Calcium 8.2 mg/dL (8.6-10.3); Chloride 104 mmol/L (101-111); EGFR African American 148.7 (>60); EGFR Non-African American 115.6 (>60); Glucose 177 mg/dL (70-100); Sodium 133 mmol/L (133-145)
[2017-07-07 08:06] LABS: Anion Gap 8 mmol/L (2-11)
[2017-07-07] MEDS: Docusate CAP* 100 MG PO SCH ×2 (09:02→23:01)
[2017-07-07] MEDS: Senna TAB PO SCH ×2 (09:03→23:04)
[2017-07-07] MEDS: Lisinopril TAB* 10 MG PO SCH (09:03)
[2017-07-07] MEDS: Omeprazole CAP* 20 MG PO SCH (09:03)
[2017-07-07] MEDS: Metoprolol Tartrate TAB* 25 MG PO SCH ×2 (09:03→22:59)
[2017-07-07] MEDS: Nicotine PATCH 14 MG/24 HR* PATCH TRANSDERM SCH (09:03)
[2017-07-07] MEDS: Insulin LISPRO* 1 UNITS UNIT SUBCUT SCH ×3 (09:04→18:15)
[2017-07-07] MEDS: ceFAZolin 2 GM PREMIX (*) 100 ML IVPB SCH ×3 (09:04→22:19)
[2017-07-07 10:04] LABS: Hematocrit 33 % (35-47); Hemoglobin 10.7 g/dl (12.0-16.0); Mean Corpuscular HGB Conc 33 g/dl (31-36); Mean Corpuscular Hemoglobin 25 pg (27-31); Mean Corpuscular Volume 77 fL (80-97); Mean Platelet Volume 8 um3 (7.4-10.4); Red Blood Count 4.24 10^6/ul (4.0-5.4); Red Cell Distribution Width 21 % (10.5-15); White Blood Count 10.4 10^3/ul (3.5-10.8)
[2017-07-07] MEDS: NS 0.9% 1000 ML* 1,000 ML IV SCH (10:23)
[2017-07-07] MEDS: hydrALAZINE IV* 20 MG/ML VIAL IV SLOW PU PRN ×2 (11:58→17:54)
[2017-07-07] MEDS: Ondansetron INJ* 2 MG/ML VIAL IV PRN (11:58)
[2017-07-07] MEDS: KCL 20 MEQ/100 ML IVPREMIX* 20 MEQ/100 ML BAG IV SCH ×3 (11:58→22:58)
[2017-07-07] MEDS: Acetaminophen TAB* 325 MG PO PRN (15:47)
--- NOTE | 2017-07-07 15:58 | CONS ---
CONSULTATION REPORT: DATE OF CONSULT: 07/07/17 REQUESTING PHYSICIAN: Dr. Murray. CONSULTING SERVICE: Infectious Disease. REASON FOR CONSULT: Spine infection, bacteremia. IMPRESSION: 1. Staph aureus bacteremia, PCR for MRSA negative in 4 of 4 bottles. Due to a lumbar spine infection. 2. Septicemia, present on admission. 3. Bilateral L4-L5 facet joint effusions and adjacent bone marrow edema with enhancement and this is an acute vertebral osteomyelitis and septic facet joint due to Staph aureus. There is also paraspinal muscle enhancement, which is due to paraspinal muscle myositis. 4. Bilateral perinephric space edema, which are due to perinephric abscess due to Staph aureus. 5. Multiple skin scarring, which is self-induced. 6. Type 2 diabetes. RECOMMENDATIONS: Agree with change to Ancef 2 g IV every 8 hours. We will repeat her blood cultures tomorrow and if the blood cultures are negative, she can have a PICC line. She will need 8 weeks of IV antibiotics. If the transthoracic echo is unremarkable, given that she has no peripheral stigmata of infectious endocarditis and that she is going to have a long course of IV antibiotics, she should not require a transesophageal echocardiogram. We will check an HIV antibody. HISTORY OF PRESENT ILLNESS: This a 52-year-old woman with diabetes, admitted with back pain. She has had 2 to 3 weeks of worsening low back pain, worse on the left, extends into her left leg depending on her position. She was seen in the ER on , given prescription for a muscle relaxant, but because of worsening back pain and fever and chills, she came to the ER again yesterday. Her white blood cell count was 18,000. She was started on vancomycin and ceftriaxone. Blood cultures were taken, they have come back positive for Staph aureus in 4 of 4 bottles. She had an MRI with findings as noted above. She has no mid or upper back or neck pain. She has no weakness or numbness in her legs. No difficulty with bowel or bladder function. She has not had an infection like this in the past. She has no prosthetic material present. She has no recent skin lesions that she knows of, though she has extensive scarring all over her body. She does note picking at her skin. She denies injection drug use. PAST MEDICAL HISTORY: 1. Type 2 diabetes. 2. Hypertension. 3. Right shoulder surgery in 2016. 4. Status post trigger finger release. MEDICATIONS: 1. Tylenol. 2. Heparin subcutaneous injection. 3. Cefazolin 2 g IV every 8 hours. 4. Lisinopril. 5. Ceftriaxone 2 g a day. 6. Metoprolol. 7. Nicotine patch. 8. Omeprazole. 9. Senna. ALLERGIES: ASPIRIN causes rash. FAMILY HISTORY: No recurrent infections. Mother of heart disease in her 60s. Father unknown. SOCIAL HISTORY: She lives in [place]. 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 She does not inject drugs. She does smoke cigarettes. She has no travel. REVIEW OF SYSTEMS: All negative to 14-point review of systems except as noted above. PHYSICAL EXAM: Vital Signs: Temperature 37.6, heart rate 80, respiratory rate 19, blood pressure 192/80, O2 sat 98% on room air, T-max was 39.4 overnight. In general, she is awake, she is in mild distress, appears uncomfortable. Neurologic: She is oriented x3, follows all commands. Strength is 5/5 in quadriceps, tibialis anterior, gastrocnemius bilaterally. Sensation is intact to light touch in lower extremities bilaterally. There is no clonus in lower extremities bilaterally. Neck: Supple without nuchal rigidity. Lymph Nodes: There are no cervical, supraclavicular, inguinal, axillary or epitrochlear lymphadenopathy. Heart: Regular rate and rhythm without murmurs, rubs or gallops. Lungs: Clear to auscultation bilaterally. Abdomen: Soft, nontender , nondistended. There are bowel sounds present. Skin: There is no rash or splinter hemorrhage. There are diffuse subcentimeter scars throughout her entire body except for mid back. Musculoskeletal: There is no neck, thoracic, or lumbar spine tenderness to palpation. There is left lower paraspinal muscle and lower SI and sacral tenderness to palpation. There is no joint synovitis. DIAGNOSTIC STUDIES/LAB DATA: White blood cell count 10, hemoglobin 10, platelets 303,000. Creatinine is 0.5. CRP was 217. Urinalysis showed 1+ blood , 3+ red cells, squamous epithelial cells. Urine tox screen showed cocaine. Please see impressions and recommendations outlined above, which I have discussed with Dr. Murray. Thank you for asking me to see Ms. Venegas in consultation. [id number]/[facility]PS #: [id number] MTDD
[2017-07-07] MEDS ORDERED: Metoprolol Tartrate TAB* 25 MG PO ONE (16:13)
[2017-07-07] MEDS ORDERED: Nitroglycerin 2% OINT* 1 GM PAK TOPICAL ONE (16:23)
--- NOTE | 2017-07-07 16:23 | PN ---
Subjective Date of Service: 07/07/17 Interval History: pt feels nauseated this aM. No abd pain. Back pain"tolerable" Objective Active Medications: Acetaminophen (Tylenol Tab*) 650 mg PO Q4H PRN PRN Reason: FEVER/PAIN Last Admin: 07/07/17 15:47 Dose: 650 mg Hydrocodone Bitart/Acetaminophen ([place] 5-325 Tab*) 1 tab PO Q8H PRN PRN Reason: PAIN Last Admin: 07/07/17 07:33 Dose: 1 tab Dextrose (D50w Syringe 50 Ml*) 12.5 gm IV PUSH .FOR FS < 60 - SS PRN PRN Reason: FS < 60 Docusate Sodium (Colace Cap*) 100 mg PO BID PAM Last Admin: 07/07/17 09:02 Dose: 100 mg Gadoteridol (Prohance* (Contrast)) 15 ml IV ONCE [facility] Stop: 07/08/17 16:05 Last Admin: 07/06/17 16:44 Dose: 15 ml Heparin Sodium (Porcine) (Heparin Vial(*)) 5,000 units SUBCUT Q8HR [facility] Last Admin: 07/07/17 13:57 Dose: 5,000 units Hydralazine HCl (Apresoline Iv*) 5 mg IV SLOW PU Q6H PRN PRN Reason: BLOOD PRESSURE Last Admin: 07/07/17 11:58 Dose: 5 mg Sodium Chloride (Ns 0.9% 1000 Ml*) 1,000 mls @ 125 mls/hr IV PER RATE [facility] Stop: 07/08/17 23:29 Last Admin: 07/07/17 10:23 Dose: 125 mls/hr Cefazolin Sodium/Dextrose (Kefzol 2 Gm Premix(*)) 100 mls @ 200 mls/hr IVPB Q8H [facility] Last Admin: 07/07/17 09:04 Dose: 200 mls/hr Potassium Chloride (Potassium Chloride 20 Meq/100 Ml Ivpremix*) 20 meq in 100 mls @ 50 mls/hr IV Q2H [facility] Stop: 07/07/17 17:59 Last Admin: 07/07/17 15:52 Dose: 50 mls/hr Insulin Human Lispro (Humalog*) 0 units SUBCUT AC PAM PRN Reason: Protocol Last Admin: 07/07/17 13:57 Dose: 2 units Lisinopril (Prinivil Tab*) 20 mg PO DAILY [facility] Last Admin: 07/07/17 09:03 Dose: 20 mg Metoprolol Tartrate (Lopressor Tab*) 12.5 mg PO Q12HR [facility] Last Admin: 07/07/17 09:03 Dose: 12.5 mg Morphine Sulfate (Morphine Inj (Syringe)*) 1 mg IV Q4H PRN PRN Reason: PAIN Nicotine (Nicotine Patch 14 Mg/24 Hr*) 1 patch TRANSDERM DAILY [facility] Last Admin: 07/07/17 09:03 Dose: 1 patch Omeprazole (Prilosec Cap*) 20 mg PO DAILY@0730 [facility] Last Admin: 07/07/17 09:03 Dose: 20 mg Ondansetron HCl (Zofran Inj*) 4 mg IV Q6H PRN PRN Reason: NAUSEA Last Admin: 07/07/17 11:58 Dose: 4 mg Pharmacy Profile Note (Nicotine Patch Removal Note*) 1 note PATCH OFF 2100 [facility] Last Admin: 07/07/17 00:05 Dose: 1 note Senna (Senokot Tab*) 1 tab PO BID [facility] Last Admin: 07/07/17 09:03 Dose: 1 tab Vital Signs 07/07/17 07/07/17 11:33 11:46 Temperature 99.8 F 99.8 F Pulse Rate 73 73 Respiratory 17 14 Rate Blood Pressure 175/65 175/65 (mmHg) O2 Sat by Pulse 98 98 Oximetry Oxygen Devices in Use Now: None Appearance: 52 yo F in nAD, AAOx3 Eyes: No Scleral Icterus, PERRLA Ears/Nose/Mouth/Throat: NL Teeth, Lips, Gums, Mucous Membranes Moist Neck: NL Appearance and Movements; NL JVP, Trachea Midline Respiratory: Symmetrical Chest Expansion and Respiratory Effort, Clear to Auscultation Cardiovascular: NL Sounds; No Murmurs; No JVD, RRR Abdominal: NL Sounds; No Tenderness; No Distention Lymphatic: No Cervical Adenopathy Extremities: No Edema, No Clubbing, Cyanosis Skin: No Rash or Ulcers, No Nodules or Sclerosis Neurological: Alert and Oriented x 3, NL Muscle Strength and Tone Result Diagrams: 07/07/17 09:32 07/07/17 09:32 Additional Lab and Data: Lab Results 07/06/17 07/06/17 07/06/17 Range/Units 11:37 11:37 11:37 WBC (3.5-10.8) 10^3/ul RBC (4.0-5.4) 10^6/ul Hgb (12.0-16.0) g/dl Hct (35-47) % MCV (80-97) fL MCH (27-31) pg MCHC (31-36) g/dl RDW (10.5-15) % Plt Count (150-450) 10^3/ul MPV (7.4-10.4) um3 Neut % (Auto) (38-83) % Lymph % (Auto) (25-47) % [place] % (Auto) (1-9) % Eos % (Auto) (0-6) % Baso % (Auto) (0-2) % Absolute Neuts (auto) (1.5-7.7) 10^3/ul Absolute Lymphs (auto) (1.0-4.8) 10^3/ul Absolute Monos (auto) (0-0.8) 10^3/ul Absolute Eos (auto) (0-0.6) 10^3/ul Absolute Basos (auto) (0-0.2) 10^3/ul Absolute Nucleated RBC 10^3/ul Nucleated RBC % INR (Anticoag Therapy) 1.19 H (0.89-1.11) APTT 25.2 L (26.0-36.3) seconds Carbon Monoxide Screen (<4.0) % Sodium 137 (133-145) mmol/L Potassium 3.3 L (3.5-5.0) mmol/L Chloride 101 (101-111) mmol/L Carbon Dioxide 28 (22-32) mmol/L Anion Gap 8 (2-11) mmol/L BUN 21 (6-24) mg/dL Creatinine 0.64 (0.51-0.95) mg/dL Est GFR ( Amer) 124.8 (>60) Est GFR (Non-Af Amer) 97.1 (>60) BUN/Creatinine Ratio 32.8 H (8-20) Glucose 179 H (70-100) mg/dL Lactic Acid 1.3 (0.5-2.0) mmol/L Calcium 9.4 (8.6-10.3) mg/dL Magnesium 2.2 (1.9-2.7) mg/dL Total Bilirubin 0.30 (0.2-1.0) mg/dL AST 15 (13-39) U/L ALT 17 (7-52) U/L Alkaline Phosphatase 74 (34-104) U/L Ammonia (16-53) mol/L Total Creatine Kinase 57 (10-223) U/L CK-MB (CK-2) 1.7 (0.6-6.3) ng/mL Troponin I 0.00 (<0.04) ng/mL C-Reactive Protein 217.10 H (< 5.00) mg/L B-Natriuretic Peptide ( - 100) pg/mL Total Protein 7.6 (6.4-8.9) g/dL Albumin 3.9 (3.2-5.2) g/dL Globulin 3.7 (2-4) g/dL Albumin/Globulin Ratio 1.1 (1-3) Lipase < 10 L (11.0-82.0) U/L TSH 0.50 (0.34-5.60) mcIU/mL Urine Color Urine Appearance Urine pH (5-9) Ur Specific [place] (1.010-1.030) Urine Protein (Negative) Urine Ketones (Negative) Urine Blood (Negative) Urine Nitrate (Negative) Urine Bilirubin (Negative) Urine Urobilinogen (Negative) Ur Leukocyte Esterase (Negative) Urine WBC (Auto) (Absent) Urine RBC (Auto) (Absent) Ur Squamous Epith Cells (Absent) Urine Bacteria (Absent) Hyaline Casts (Absent) Urine Glucose (Negative) Salicylates Pending Acetaminophen < 15 mcg/mL Serum Alcohol < 10 (<10) mg/dL 07/06/17 07/06/17 07/06/17 Range/Units 11:37 11:37 12:45 WBC 18.5 H (3.5-10.8) 10^3/ul RBC 4.52 (4.0-5.4) 10^6/ul Hgb 11.3 L (12.0-16.0) g/dl Hct 35 (35-47) % MCV 77 L (80-97) fL MCH 25 L (27-31) pg MCHC 32 (31-36) g/dl RDW 20 H (10.5-15) % Plt Count 342 (150-450) 10^3/ul MPV 8 (7.4-10.4) um3 Neut % (Auto) 89.4 H (38-83) % Lymph % (Auto) 2.6 L (25-47) % [place] % (Auto) 7.7 (1-9) % Eos % (Auto) 0 (0-6) % Baso % (Auto) 0.3 (0-2) % Absolute Neuts (auto) 16.5 H (1.5-7.7) 10^3/ul Absolute Lymphs (auto) 0.5 L (1.0-4.8) 10^3/ul Absolute Monos (auto) 1.4 H (0-0.8) 10^3/ul Absolute Eos (auto) 0 (0-0.6) 10^3/ul Absolute Basos (auto) 0.1 (0-0.2) 10^3/ul Absolute Nucleated RBC 0.01 10^3/ul Nucleated RBC % 0.1 INR (Anticoag Therapy) (0.89-1.11) APTT (26.0-36.3) seconds Carbon Monoxide Screen (<4.0) % Sodium (133-145) mmol/L Potassium (3.5-5.0) mmol/L Chloride (101-111) mmol/L Carbon Dioxide (22-32) mmol/L Anion Gap (2-11) mmol/L BUN (6-24) mg/dL Creatinine (0.51-0.95) mg/dL Est GFR ( Amer) (>60) Est GFR (Non-Af Amer) (>60) BUN/Creatinine Ratio (8-20) Glucose (70-100) mg/dL Lactic Acid (0.5-2.0) mmol/L Calcium (8.6-10.3) mg/dL Magnesium (1.9-2.7) mg/dL Total Bilirubin (0.2-1.0) mg/dL AST (13-39) U/L ALT (7-52) U/L Alkaline Phosphatase (34-104) U/L Ammonia 45 (16-53) mol/L Total Creatine Kinase (10-223) U/L CK-MB (CK-2) (0.6-6.3) ng/mL Troponin I (<0.04) ng/mL C-Reactive Protein (< 5.00) mg/L B-Natriuretic Peptide 152 H ( - 100) pg/mL Total Protein (6.4-8.9) g/dL Albumin (3.2-5.2) g/dL Globulin (2-4) g/dL Albumin/Globulin Ratio (1-3) Lipase (11.0-82.0) U/L TSH (0.34-5.60) mcIU/mL Urine Color Yellow Urine Appearance Cloudy Urine pH 6.0 (5-9) Ur Specific [place] 1.026 (1.010-1.030) Urine Protein 3+(>=500 mg/dl) H (Negative) Urine Ketones Trace H (Negative) Urine Blood 1+ H (Negative) Urine Nitrate Negative (Negative) Urine Bilirubin Negative (Negative) Urine Urobilinogen Negative (Negative) Ur Leukocyte Esterase Negative (Negative) Urine WBC (Auto) Trace(0-5/hpf) (Absent) Urine RBC (Auto) 3+(>10/hpf) H (Absent) Ur Squamous Epith Cells Present H (Absent) Urine Bacteria Absent (Absent) Hyaline Casts Present H (Absent) Urine Glucose 1+(50 mg/dl) H (Negative) Salicylates Acetaminophen mcg/mL Serum Alcohol (<10) mg/dL 07/06/17 Range/Units 12:45 WBC (3.5-10.8) 10^3/ul RBC (4.0-5.4) 10^6/ul Hgb (12.0-16.0) g/dl Hct (35-47) % MCV (80-97) fL MCH (27-31) pg MCHC (31-36) g/dl RDW (10.5-15) % Plt Count (150-450) 10^3/ul MPV (7.4-10.4) um3 Neut % (Auto) (38-83) % Lymph % (Auto) (25-47) % [place] % (Auto) (1-9) % Eos % (Auto) (0-6) % Baso % (Auto) (0-2) % Absolute Neuts (auto) (1.5-7.7) 10^3/ul Absolute Lymphs (auto) (1.0-4.8) 10^3/ul Absolute Monos (auto) (0-0.8) 10^3/ul Absolute Eos (auto) (0-0.6) 10^3/ul Absolute Basos (auto) (0-0.2) 10^3/ul Absolute Nucleated RBC 10^3/ul Nucleated RBC % INR (Anticoag Therapy) (0.89-1.11) APTT (26.0-36.3) seconds Carbon Monoxide Screen < 4 (<4.0) % Sodium (133-145) mmol/L Potassium (3.5-5.0) mmol/L Chloride (101-111) mmol/L Carbon Dioxide (22-32) mmol/L Anion Gap (2-11) mmol/L BUN (6-24) mg/dL Creatinine (0.51-0.95) mg/dL Est GFR ( Amer) (>60) Est GFR (Non-Af Amer) (>60) BUN/Creatinine Ratio (8-20) Glucose (70-100) mg/dL Lactic Acid (0.5-2.0) mmol/L Calcium (8.6-10.3) mg/dL Magnesium (1.9-2.7) mg/dL Total Bilirubin (0.2-1.0) mg/dL AST (13-39) U/L ALT (7-52) U/L Alkaline Phosphatase (34-104) U/L Ammonia (16-53) mol/L Total Creatine Kinase (10-223) U/L CK-MB (CK-2) (0.6-6.3) ng/mL Troponin I (<0.04) ng/mL C-Reactive Protein (< 5.00) mg/L B-Natriuretic Peptide ( - 100) pg/mL Total Protein (6.4-8.9) g/dL Albumin (3.2-5.2) g/dL Globulin (2-4) g/dL Albumin/Globulin Ratio (1-3) Lipase (11.0-82.0) U/L TSH (0.34-5.60) mcIU/mL Urine Color Urine Appearance Urine pH (5-9) Ur Specific [place] (1.010-1.030) Urine Protein (Negative) Urine Ketones (Negative) Urine Blood (Negative) Urine Nitrate (Negative) Urine Bilirubin (Negative) Urine Urobilinogen (Negative) Ur Leukocyte Esterase (Negative) Urine WBC (Auto) (Absent) Urine RBC (Auto) (Absent) Ur Squamous Epith Cells (Absent) Urine Bacteria (Absent) Hyaline Casts (Absent) Urine Glucose (Negative) Salicylates Acetaminophen mcg/mL Serum Alcohol (<10) mg/dL Assess/Plan/Problems-Billing Assessment: 52 yo f with h/o HTN, DM2 presents with back pain x 3 days, developed a fever within a few hours of her admission - Patient Problems (1) Vertebral osteomyelitis, acute Comment: due to Staph, MRSA negative. with myositis and likley perinephric abscess cont Ancef. Vanc d/c'd Appreciate Dr. Pepper's consult TTE pending-either way pt will need 8 weeks of IV antibiotics (2) HTN (hypertension) Comment: uncontrolled cont lopressor(started at admission) and home lisinopril cont hydralazine prn will use nitro paste for now also (3) DM2 (diabetes mellitus, type 2) Comment: holding oral meds, cont ISS (4) Hypokalemia Comment: replacing IV (5) DVT prophylaxis Comment: heparin sc Status and Disposition: inpatient
[2017-07-07] MEDS ORDERED: Magnesium CITRATE* 300 ML BTL PO ONE (16:30)
--- NOTE | 2017-07-07 16:55 | ECHO ---
Patient: ORAL TORRES [facility] Rec#: [id number] : 1965 Date: 07/07/2017 Age: 52y Height: 167.64 cm / 66.0 in Weight: 72.57 kg / 159.9 lbs Sex: F BSA: 1.82 Room#: [facility] Admit Date#: 07/07/2017 Type: Inpatient Referring: Bogdan Pepper MD Reading: Negro Edwards MD Florist Helper: Delmy Vaca [facility] Transthoracic Echocardiogram Indication: Bacteremia BP: 175/65 HR: 73 Rhythm: NSR Findings History: DM,HTN,smoker,+ family history, currently with Staph aureus bacteremia. Technical Comments: The study quality is good. Completed at 1550. Left Ventricle: The left ventricular chamber size is normal. Moderate concentric left ventricular hypertrophy is observed. Global left ventricular wall motion and contractility are within normal limits. There is normal left ventricular systolic function. The estimated ejection fraction is 55-60%. Normal left ventricular diastolic filling is observed. Left Atrium: The left atrium is mildly dilated. Right Ventricle: The right ventricular cavity size is normal. The right ventricular global systolic function is normal. Right Atrium: The right atrial cavity size is normal. Aortic Valve: The aortic valve is trileaflet. There is no evidence of aortic valve thickening. There is no evidence of aortic regurgitation. There is no evidence of aortic stenosis. Mitral Valve: The mitral valve leaflets are mildly thickened. There is a trace of mitral regurgitation. Tricuspid Valve: The tricuspid valve leaflets are normal. There is no evidence of tricuspid valve regurgitation. Unable to estimate the right ventricular systolic pressure. Pulmonic Valve: The pulmonic valve appears normal. There is a trace pulmonic regurgitation. There is no pulmonic stenosis. Pericardium: There is no significant pericardial effusion. A pericardial fat pad is visualized. Aorta: There is no dilatation of the ascending aorta. There is no dilatation of the aortic arch. There is no dilation of the aortic root. Pulmonary Artery: The main pulmonary artery appears normal. Venous: The inferior vena cava appears normal in size. There is a greater than 50% respiratory change in the inferior vena cava dimension. Conclusions There is normal left ventricular systolic function. The estimated ejection fraction is 55-60%. Global left ventricular wall motion and contractility are within normal limits. The left ventricular chamber size is normal. Moderate concentric left ventricular hypertrophy is observed. The left atrium is mildly dilated. Functionally benign heart valves. There is no prior echocardiogram available to compare wtih at this time. Measurements Name Value Normal Range RVIDd (AP) 2D 2.2 cm (0.9 - 2.6) RVDdMajor (2D) 3.3 cm (2.2 - 4.4) RAd ISD 4CH 4.4 cm (3.4 - 4.9) RA (A4C)W 3.7 cm (2.9 - 4.6) IVSd (2D) 1.8 cm (0.6 - 1) LVPWd (2D) 1.6 cm (0.6 - 1) LVIDd (2D) 3.9 cm (3.6 - 5.4) LVIDs (2D) 2.2 cm - LV FS (2D) 43 % (25 - 45) Aortic Annulus 1.7 cm (1.4 - 2.6) Ao root diameter (2D) 2.4 cm (2.1 - 3.5) Ascending Ao 2.9 cm (2.1 - 3.4) Aortic arch 2.4 cm (1.8 - 3.4) LA dimension (AP) 2D 3.9 cm (2.3 - 3.8) LAd ISD 4CH 5.6 cm (2.9 - 5.3) LA ISD 4CH W 3.9 cm (2.5 - 4.5) Name Value Normal Range LA ESV SP 4CH (A/L) 57 ml - LA ESV SP 2CH (A/L) 74 ml - LA ESV BP (A/L) 66 ml - LA ESV BP (A/L) index 36.29 ml/m2 - LA ESV SP 4CH (MOD) 53 ml - LA ESV SP 2CH (MOD) 71 ml - Name Value Normal Range MV E-wave Vmax 1.2 m/sec - MV deceleration time 165 msec - MV A-wave Vmax 1.1 m/sec - MV E:A ratio 1.12 ratio - LV septal e' Vmax 0.07 m/sec - LV lateral e' Vmax 0.09 m/sec - LV E:e' septal ratio 17.14 ratio - LV E:e' lateral ratio 13.33 ratio - Name Value Normal Range AV Vmax 2 m/sec - AV VTI 39.7 cm - AV peak gradient 15.23 mmHg - AV mean gradient 6.94 mmHg - LVOT Vmax 1.3 m/sec - LVOT VTI 27.6 cm - LVOT peak gradient 6.87 mmHg - LVOT mean gradient 3.55 mmHg - Name Value Normal Range IVC diameter 1.5 cm - Name Value Normal Range PV Vmax 1.1 m/sec - PV peak gradient 4.83 mmHg -
[2017-07-08] MEDS: ceFAZolin 2 GM PREMIX (*) 100 ML IVPB SCH ×3 (01:18→16:30)
[2017-07-08] MEDS: KCL 20 MEQ/100 ML IVPREMIX* 20 MEQ/100 ML BAG IV SCH (02:41)
[2017-07-08] MEDS: Heparin VIAL(*) 5000 UNITS/ML VIAL (FIVE THOUSAND) SUBCUT SCH ×3 (06:03→21:45)
[2017-07-08] MEDS: HYDROcodone/ACETAMIN 5-325 MG* 1 TAB PO PRN ×4 (07:52→22:13)
[2017-07-08] MEDS: Insulin LISPRO* 1 UNITS UNIT SUBCUT SCH ×3 (07:54→16:41)
[2017-07-08] MEDS: Senna TAB PO SCH ×2 (07:55→21:46)
[2017-07-08] MEDS: Docusate CAP* 100 MG PO SCH ×2 (07:55→21:46)
[2017-07-08] MEDS: Omeprazole CAP* 20 MG PO SCH (07:55)
[2017-07-08] MEDS: Lisinopril TAB* 10 MG PO SCH (07:56)
[2017-07-08] MEDS: Metoprolol Tartrate TAB* 25 MG PO SCH ×3 (07:56→21:46)
[2017-07-08] MEDS: Morphine INJ* 2 MG/ML 1 ML SYRINGE (TWO MG - NEW SYRINGE VERSION) IV PRN (08:08)
[2017-07-08] MEDS ORDERED: amLODIPine TAB* 5 MG PO SCH (09:00)
[2017-07-08 10:02] LABS: BUN/Creatinine Ratio 22.2 (8-20); Calcium 8.1 mg/dL (8.6-10.3); EGFR African American 151.9 (>60); EGFR Non-African American 118.1 (>60); Potassium 3.1 mmol/L (3.5-5.0)
[2017-07-08] MEDS: Nicotine PATCH 14 MG/24 HR* PATCH TRANSDERM SCH ×2 (10:05→22:11)
[2017-07-08] MEDS ORDERED: Vancomycin Trough Check NOTE FOLLOW UP ONE (11:30)
[2017-07-08] MEDS: NS 0.9% 1000 ML* 1,000 ML IV SCH (11:51)
[2017-07-08] MEDS ORDERED: Potassium Chlor TAB* 20 MEQ TAB.ER PO ONE (12:19)
[2017-07-08] MEDS ORDERED: Omeprazole CAP* 20 MG PO ONE (14:09)
[2017-07-08] MEDS ORDERED: Nicotine Inhaler* 10 MG AMP INH PRN (14:30)
[2017-07-08] MEDS: Mouth Piece, Nicotine* 1 EACH CARTRIDGE INH ONE ×2 (15:17→16:54)
[2017-07-08] MEDS ORDERED: Bisacodyl SUPP* 10 MG SUPP PR PRN (15:54)
--- NOTE | 2017-07-08 15:57 | PN ---
Subjective Date of Service: 07/08/17 Interval History: pt feels " much better". Ambulate with PT with no problems. Still constipated Objective Active Medications: Acetaminophen (Tylenol Tab*) 650 mg PO Q4H PRN PRN Reason: FEVER/PAIN Last Admin: 07/07/17 15:47 Dose: 650 mg Hydrocodone Bitart/Acetaminophen ([place] 5-325 Tab*) 1 tab PO Q4H PRN PRN Reason: PAIN Last Admin: 07/08/17 12:39 Dose: 1 tab Amlodipine Besylate (Norvasc Tab*) 5 mg PO DAILY [facility] Last Admin: 07/08/17 08:11 Dose: 5 mg Dextrose (D50w Syringe 50 Ml*) 12.5 gm IV PUSH .FOR FS < 60 - SS PRN PRN Reason: FS < 60 Docusate Sodium (Colace Cap*) 100 mg PO BID [facility] Last Admin: 07/08/17 07:55 Dose: 100 mg Gadoteridol (Prohance* (Contrast)) 15 ml IV ONCE [facility] Stop: 07/08/17 16:05 Last Admin: 07/06/17 16:44 Dose: 15 ml Heparin Sodium (Porcine) (Heparin Vial(*)) 5,000 units SUBCUT Q8HR [facility] Last Admin: 07/08/17 12:48 Dose: 5,000 units Hydralazine HCl (Apresoline Iv*) 5 mg IV SLOW PU Q6H PRN PRN Reason: BLOOD PRESSURE Last Admin: 07/07/17 17:54 Dose: 5 mg Cefazolin Sodium/Dextrose (Kefzol 2 Gm Premix(*)) 100 mls @ 200 mls/hr IVPB Q8H [facility] Last Admin: 07/08/17 10:04 Dose: 200 mls/hr Insulin Human Lispro (Humalog*) 0 units SUBCUT AC [facility] PRN Reason: Protocol Last Admin: 07/08/17 11:50 Dose: 2 units Lisinopril (Prinivil Tab*) 20 mg PO DAILY [facility] Last Admin: 07/08/17 07:56 Dose: 20 mg Metoprolol Tartrate (Lopressor Tab*) 25 mg PO Q12HR [facility] Last Admin: 07/08/17 08:11 Dose: 12.5 mg Morphine Sulfate (Morphine Inj (Syringe)*) 1 mg IV Q4H PRN PRN Reason: PAIN Last Admin: 07/08/17 08:08 Dose: 1 mg Nicotine (Nicotine Inhaler*) 10 mg INH Q2H PRN PRN Reason: CRAVING Omeprazole (Prilosec Cap*) 20 mg PO DAILY@729 [facility] Stop: 07/09/17 07:30 Last Admin: 07/08/17 07:55 Dose: 20 mg Omeprazole (Prilosec Cap*) 40 mg PO DAILY@729 [facility] Ondansetron HCl (Zofran Inj*) 4 mg IV Q6H PRN PRN Reason: NAUSEA Last Admin: 07/07/17 11:58 Dose: 4 mg Pharmacy Profile Note (Nicotine Patch Removal Note*) 1 note PATCH OFF 2100 [facility] Last Admin: 07/07/17 23:07 Dose: 1 note Senna (Senokot Tab*) 1 tab PO BID [facility] Last Admin: 07/08/17 07:55 Dose: 1 tab Vital Signs 07/07/17 07/07/17 07/07/17 16:37 17:53 17:54 Temperature 100.2 F Pulse Rate 82 Respiratory 16 Rate Blood Pressure 175/74 (mmHg) O2 Sat by Pulse Oximetry 07/07/17 07/07/17 07/07/17 19:19 19:53 20:00 Temperature 100.2 F Pulse Rate 71 Respiratory 18 18 18 Rate Blood Pressure 165/73 (mmHg) O2 Sat by Pulse 96 Oximetry 07/07/17 07/08/17 07/08/17 23:15 05:04 07:52 Temperature 98.5 F 98.8 F Pulse Rate 113 68 Respiratory 17 16 16 Rate Blood Pressure 194/82 187/88 (mmHg) O2 Sat by Pulse 95 97 Oximetry 07/08/17 07/08/17 07/08/17 07:53 08:00 08:08 Temperature 99.3 F Pulse Rate 73 Respiratory 16 16 16 Rate Blood Pressure 178/65 (mmHg) O2 Sat by Pulse 99 Oximetry 07/08/17 07/08/17 07/08/17 09:08 09:50 09:52 Temperature Pulse Rate 70 Respiratory 16 16 16 Rate Blood Pressure 164/58 (mmHg) O2 Sat by Pulse Oximetry 07/08/17 07/08/17 07/08/17 09:57 12:29 12:39 Temperature 99.9 F Pulse Rate 65 Respiratory 16 16 18 Rate Blood Pressure 154/64 (mmHg) O2 Sat by Pulse 99 Oximetry 07/08/17 14:39 Temperature Pulse Rate Respiratory 20 Rate Blood Pressure (mmHg) O2 Sat by Pulse Oximetry Oxygen Devices in Use Now: None Appearance: 52 yo F in nAd, AAOx3 Eyes: No Scleral Icterus, PERRLA Ears/Nose/Mouth/Throat: NL Teeth, Lips, Gums, Mucous Membranes Moist Neck: NL Appearance and Movements; NL JVP, Trachea Midline Respiratory: Symmetrical Chest Expansion and Respiratory Effort, Clear to Auscultation Cardiovascular: NL Sounds; No Murmurs; No JVD, RRR Abdominal: NL Sounds; No Tenderness; No Distention, No Hepatosplenomegaly Lymphatic: No Cervical Adenopathy Extremities: No Edema, No Clubbing, Cyanosis Skin: No Nodules or Sclerosis, - - scattered scars from excoriated skin on all extemities, upper back and chest Neurological: Alert and Oriented x 3, NL Muscle Strength and Tone Result Diagrams: 07/07/17 09:32 07/08/17 09:21 Additional Lab and Data: Lab Results 07/06/17 07/06/17 07/06/17 Range/Units 11:37 11:37 11:37 WBC (3.5-10.8) 10^3/ul RBC (4.0-5.4) 10^6/ul Hgb (12.0-16.0) g/dl Hct (35-47) % MCV (80-97) fL MCH (27-31) pg MCHC (31-36) g/dl RDW (10.5-15) % Plt Count (150-450) 10^3/ul MPV (7.4-10.4) um3 Neut % (Auto) (38-83) % Lymph % (Auto) (25-47) % [place] % (Auto) (1-9) % Eos % (Auto) (0-6) % Baso % (Auto) (0-2) % Absolute Neuts (auto) (1.5-7.7) 10^3/ul Absolute Lymphs (auto) (1.0-4.8) 10^3/ul Absolute Monos (auto) (0-0.8) 10^3/ul Absolute Eos (auto) (0-0.6) 10^3/ul Absolute Basos (auto) (0-0.2) 10^3/ul Absolute Nucleated RBC 10^3/ul Nucleated RBC % INR (Anticoag Therapy) 1.19 H (0.89-1.11) APTT 25.2 L (26.0-36.3) seconds Carbon Monoxide Screen (<4.0) % Sodium 137 (133-145) mmol/L Potassium 3.3 L (3.5-5.0) mmol/L Chloride 101 (101-111) mmol/L Carbon Dioxide 28 (22-32) mmol/L Anion Gap 8 (2-11) mmol/L BUN 21 (6-24) mg/dL Creatinine 0.64 (0.51-0.95) mg/dL Est GFR ( Amer) 124.8 (>60) Est GFR (Non-Af Amer) 97.1 (>60) BUN/Creatinine Ratio 32.8 H (8-20) Glucose 179 H (70-100) mg/dL Lactic Acid 1.3 (0.5-2.0) mmol/L Calcium 9.4 (8.6-10.3) mg/dL Magnesium 2.2 (1.9-2.7) mg/dL Total Bilirubin 0.30 (0.2-1.0) mg/dL AST 15 (13-39) U/L ALT 17 (7-52) U/L Alkaline Phosphatase 74 (34-104) U/L Ammonia (16-53) mol/L Total Creatine Kinase 57 (10-223) U/L CK-MB (CK-2) 1.7 (0.6-6.3) ng/mL Troponin I 0.00 (<0.04) ng/mL C-Reactive Protein 217.10 H (< 5.00) mg/L B-Natriuretic Peptide ( - 100) pg/mL Total Protein 7.6 (6.4-8.9) g/dL Albumin 3.9 (3.2-5.2) g/dL Globulin 3.7 (2-4) g/dL Albumin/Globulin Ratio 1.1 (1-3) Lipase < 10 L (11.0-82.0) U/L TSH 0.50 (0.34-5.60) mcIU/mL Urine Color Urine Appearance Urine pH (5-9) Ur Specific [place] (1.010-1.030) Urine Protein (Negative) Urine Ketones (Negative) Urine Blood (Negative) Urine Nitrate (Negative) Urine Bilirubin (Negative) Urine Urobilinogen (Negative) Ur Leukocyte Esterase (Negative) Urine WBC (Auto) (Absent) Urine RBC (Auto) (Absent) Ur Squamous Epith Cells (Absent) Urine Bacteria (Absent) Hyaline Casts (Absent) Urine Glucose (Negative) Salicylates Pending Acetaminophen < 15 mcg/mL Serum Alcohol < 10 (<10) mg/dL 07/06/17 07/06/17 07/06/17 Range/Units 11:37 11:37 12:45 WBC 18.5 H (3.5-10.8) 10^3/ul RBC 4.52 (4.0-5.4) 10^6/ul Hgb 11.3 L (12.0-16.0) g/dl Hct 35 (35-47) % MCV 77 L (80-97) fL MCH 25 L (27-31) pg MCHC 32 (31-36) g/dl RDW 20 H (10.5-15) % Plt Count 342 (150-450) 10^3/ul MPV 8 (7.4-10.4) um3 Neut % (Auto) 89.4 H (38-83) % Lymph % (Auto) 2.6 L (25-47) % [place] % (Auto) 7.7 (1-9) % Eos % (Auto) 0 (0-6) % Baso % (Auto) 0.3 (0-2) % Absolute Neuts (auto) 16.5 H (1.5-7.7) 10^3/ul Absolute Lymphs (auto) 0.5 L (1.0-4.8) 10^3/ul Absolute Monos (auto) 1.4 H (0-0.8) 10^3/ul Absolute Eos (auto) 0 (0-0.6) 10^3/ul Absolute Basos (auto) 0.1 (0-0.2) 10^3/ul Absolute Nucleated RBC 0.01 10^3/ul Nucleated RBC % 0.1 INR (Anticoag Therapy) (0.89-1.11) APTT (26.0-36.3) seconds Carbon Monoxide Screen (<4.0) % Sodium (133-145) mmol/L Potassium (3.5-5.0) mmol/L Chloride (101-111) mmol/L Carbon Dioxide (22-32) mmol/L Anion Gap (2-11) mmol/L BUN (6-24) mg/dL Creatinine (0.51-0.95) mg/dL Est GFR ( Amer) (>60) Est GFR (Non-Af Amer) (>60) BUN/Creatinine Ratio (8-20) Glucose (70-100) mg/dL Lactic Acid (0.5-2.0) mmol/L Calcium (8.6-10.3) mg/dL Magnesium (1.9-2.7) mg/dL Total Bilirubin (0.2-1.0) mg/dL AST (13-39) U/L ALT (7-52) U/L Alkaline Phosphatase (34-104) U/L Ammonia 45 (16-53) mol/L Total Creatine Kinase (10-223) U/L CK-MB (CK-2) (0.6-6.3) ng/mL Troponin I (<0.04) ng/mL C-Reactive Protein (< 5.00) mg/L B-Natriuretic Peptide 152 H ( - 100) pg/mL Total Protein (6.4-8.9) g/dL Albumin (3.2-5.2) g/dL Globulin (2-4) g/dL Albumin/Globulin Ratio (1-3) Lipase (11.0-82.0) U/L TSH (0.34-5.60) mcIU/mL Urine Color Yellow Urine Appearance Cloudy Urine pH 6.0 (5-9) Ur Specific [place] 1.026 (1.010-1.030) Urine Protein 3+(>=500 mg/dl) H (Negative) Urine Ketones Trace H (Negative) Urine Blood 1+ H (Negative) Urine Nitrate Negative (Negative) Urine Bilirubin Negative (Negative) Urine Urobilinogen Negative (Negative) Ur Leukocyte Esterase Negative (Negative) Urine WBC (Auto) Trace(0-5/hpf) (Absent) Urine RBC (Auto) 3+(>10/hpf) H (Absent) Ur Squamous Epith Cells Present H (Absent) Urine Bacteria Absent (Absent) Hyaline Casts Present H (Absent) Urine Glucose 1+(50 mg/dl) H (Negative) Salicylates Acetaminophen mcg/mL Serum Alcohol (<10) mg/dL 07/06/17 Range/Units 12:45 WBC (3.5-10.8) 10^3/ul RBC (4.0-5.4) 10^6/ul Hgb (12.0-16.0) g/dl Hct (35-47) % MCV (80-97) fL MCH (27-31) pg MCHC (31-36) g/dl RDW (10.5-15) % Plt Count (150-450) 10^3/ul MPV (7.4-10.4) um3 Neut % (Auto) (38-83) % Lymph % (Auto) (25-47) % [place] % (Auto) (1-9) % Eos % (Auto) (0-6) % Baso % (Auto) (0-2) % Absolute Neuts (auto) (1.5-7.7) 10^3/ul Absolute Lymphs (auto) (1.0-4.8) 10^3/ul Absolute Monos (auto) (0-0.8) 10^3/ul Absolute Eos (auto) (0-0.6) 10^3/ul Absolute Basos (auto) (0-0.2) 10^3/ul Absolute Nucleated RBC 10^3/ul Nucleated RBC % INR (Anticoag Therapy) (0.89-1.11) APTT (26.0-36.3) seconds Carbon Monoxide Screen < 4 (<4.0) % Sodium (133-145) mmol/L Potassium (3.5-5.0) mmol/L Chloride (101-111) mmol/L Carbon Dioxide (22-32) mmol/L Anion Gap (2-11) mmol/L BUN (6-24) mg/dL Creatinine (0.51-0.95) mg/dL Est GFR ( Amer) (>60) Est GFR (Non-Af Amer) (>60) BUN/Creatinine Ratio (8-20) Glucose (70-100) mg/dL Lactic Acid (0.5-2.0) mmol/L Calcium (8.6-10.3) mg/dL Magnesium (1.9-2.7) mg/dL Total Bilirubin (0.2-1.0) mg/dL AST (13-39) U/L ALT (7-52) U/L Alkaline Phosphatase (34-104) U/L Ammonia (16-53) mol/L Total Creatine Kinase (10-223) U/L CK-MB (CK-2) (0.6-6.3) ng/mL Troponin I (<0.04) ng/mL C-Reactive Protein (< 5.00) mg/L B-Natriuretic Peptide ( - 100) pg/mL Total Protein (6.4-8.9) g/dL Albumin (3.2-5.2) g/dL Globulin (2-4) g/dL Albumin/Globulin Ratio (1-3) Lipase (11.0-82.0) U/L TSH (0.34-5.60) mcIU/mL Urine Color Urine Appearance Urine pH (5-9) Ur Specific [place] (1.010-1.030) Urine Protein (Negative) Urine Ketones (Negative) Urine Blood (Negative) Urine Nitrate (Negative) Urine Bilirubin (Negative) Urine Urobilinogen (Negative) Ur Leukocyte Esterase (Negative) Urine WBC (Auto) (Absent) Urine RBC (Auto) (Absent) Ur Squamous Epith Cells (Absent) Urine Bacteria (Absent) Hyaline Casts (Absent) Urine Glucose (Negative) Salicylates Acetaminophen mcg/mL Serum Alcohol (<10) mg/dL Assess/Plan/Problems-Billing Assessment: 52 yo f with h/o HTN, DM2 presents with back pain x 3 days, developed a fever within a few hours of her admission - Patient Problems (1) Vertebral osteomyelitis, acute Comment: due to Staph, MRSA negative. with myositis and likely perinephric abscess cont Ancef. Appreciate Dr. Pepper's consult TTE shows normal valves. Plan for 8 weeks IV antibiotics. Repeat blood cx ordered for 07/09/17 (2) HTN (hypertension) Comment: uncontrolled cont lopressor(started at admission) and home lisinopril cont hydralazine prn adding Norvasc (3) DM2 (diabetes mellitus, type 2) Comment: holding oral meds, cont ISS (4) Hypokalemia Comment: replacing PO (5) DVT prophylaxis Comment: heparin sc Status and Disposition: inpatient
[2017-07-08] MEDS: Nicotine Patch Removal NOTE PATCH OFF SCH (22:05)
[2017-07-09] MEDS: ceFAZolin 2 GM PREMIX (*) 100 ML IVPB SCH ×3 (02:25→17:26)
[2017-07-09] MEDS: HYDROcodone/ACETAMIN 5-325 MG* 1 TAB PO PRN ×3 (03:03→20:45)
[2017-07-09] MEDS: Morphine INJ* 2 MG/ML 1 ML SYRINGE (TWO MG - NEW SYRINGE VERSION) IV PRN ×3 (04:06→17:33)
[2017-07-09] MEDS: Heparin VIAL(*) 5000 UNITS/ML VIAL (FIVE THOUSAND) SUBCUT SCH ×3 (06:41→21:08)
[2017-07-09 06:57] LABS: BUN/Creatinine Ratio 19.6 (8-20); Calcium 8.3 mg/dL (8.6-10.3); EGFR African American 162.2 (>60); EGFR Non-African American 126.1 (>60); Potassium 2.9 mmol/L (3.5-5.0)
[2017-07-09] MEDS: amLODIPine TAB* 5 MG PO SCH (09:22)
[2017-07-09] MEDS: Insulin LISPRO* 1 UNITS UNIT SUBCUT SCH ×3 (09:22→17:26)
[2017-07-09] MEDS: Omeprazole CAP* 20 MG PO SCH (09:23)
[2017-07-09] MEDS: Senna TAB PO SCH ×2 (09:23→20:45)
[2017-07-09] MEDS: Docusate CAP* 100 MG PO SCH ×2 (09:23→20:45)
[2017-07-09] MEDS: Metoprolol Tartrate TAB* 25 MG PO SCH ×2 (09:24→20:45)
[2017-07-09] MEDS: Lisinopril TAB* 10 MG PO SCH (09:24)
[2017-07-09] MEDS: glipiZIDE TAB.XL* 5 MG PO SCH (09:25)
[2017-07-09] MEDS: Potassium Chlor TAB* 20 MEQ TAB.ER PO SCH ×2 (09:25→20:45)
[2017-07-09] MEDS: Nicotine PATCH 14 MG/24 HR* PATCH TRANSDERM SCH ×2 (09:26→18:07)
[2017-07-09] MEDS ORDERED: Omeprazole CAP* 20 MG PO ONE (13:44)
[2017-07-09] MEDS ORDERED: Magnesium Hydroxide LIQ* 30 ML UDC PO PRN (13:44)
--- NOTE | 2017-07-09 14:21 | PN ---
Subjective Date of Service: 07/09/17 Interval History: after multiple laxatives , still constipated. Refuses to take anything [place]. Denies abd pain or distention Objective Active Medications: Acetaminophen (Tylenol Tab*) 650 mg PO Q4H PRN PRN Reason: FEVER/PAIN Last Admin: 07/07/17 15:47 Dose: 650 mg Hydrocodone Bitart/Acetaminophen ([place] 5-325 Tab*) 1 tab PO Q4H PRN PRN Reason: PAIN Last Admin: 07/09/17 12:57 Dose: 1 tab Amlodipine Besylate (Norvasc Tab*) 10 mg PO DAILY [facility] Last Admin: 07/09/17 09:22 Dose: 10 mg Bisacodyl (Dulcolax Supp*) 10 mg [place] DAILY PRN PRN Reason: CONSTIPATION Dextrose (D50w Syringe 50 Ml*) 12.5 gm IV PUSH .FOR FS < 60 - SS PRN PRN Reason: FS < 60 Docusate Sodium (Colace Cap*) 100 mg PO BID [facility] Last Admin: 07/09/17 09:23 Dose: 100 mg Glipizide (Glucotrol Xl*) 5 mg PO QAM [facility] Last Admin: 07/09/17 09:25 Dose: 5 mg Heparin Sodium (Porcine) (Heparin Vial(*)) 5,000 units SUBCUT Q8HR [facility] Last Admin: 07/09/17 12:54 Dose: 5,000 units Hydralazine HCl (Apresoline Iv*) 5 mg IV SLOW PU Q6H PRN PRN Reason: BLOOD PRESSURE Last Admin: 07/07/17 17:54 Dose: 5 mg Cefazolin Sodium/Dextrose (Kefzol 2 Gm Premix(*)) 100 mls @ 200 mls/hr IVPB Q8H [facility] Last Admin: 07/09/17 09:25 Dose: 200 mls/hr Insulin Human Lispro (Humalog*) 0 units SUBCUT AC [facility] PRN Reason: Protocol Last Admin: 07/09/17 12:54 Dose: 6 units Lisinopril (Prinivil Tab*) 20 mg PO DAILY [facility] Last Admin: 07/09/17 09:24 Dose: 20 mg Magnesium Hydroxide (Milk Of Magnesia Liq*) 30 ml PO Q6H PRN PRN Reason: DISCOMFORT Metoprolol Tartrate (Lopressor Tab*) 25 mg PO Q12HR [facility] Last Admin: 07/09/17 09:24 Dose: 25 mg Morphine Sulfate (Morphine Inj (Syringe)*) 1 mg IV Q4H PRN PRN Reason: PAIN Last Admin: 07/09/17 09:33 Dose: 1 mg Nicotine (Nicotine Inhaler*) 10 mg INH Q2H PRN PRN Reason: CRAVING Nicotine (Nicotine Patch 14 Mg/24 Hr*) 1 patch TRANSDERM DAILY [facility] Last Admin: 07/09/17 09:26 Dose: Not Given Omeprazole (Prilosec Cap*) 40 mg PO DAILY@0730 [facility] Ondansetron HCl (Zofran Inj*) 4 mg IV Q6H PRN PRN Reason: NAUSEA Last Admin: 07/07/17 11:58 Dose: 4 mg Pharmacy Profile Note (Nicotine Patch Removal Note*) 1 note PATCH OFF 2100 [facility] Last Admin: 07/08/17 22:05 Dose: Not Given Potassium Chloride (Klor Con Er Tab*) 40 meq PO BID [facility] Stop: 07/09/17 23:59 Last Admin: 07/09/17 09:25 Dose: 40 meq Senna (Senokot Tab*) 1 tab PO BID [facility] Last Admin: 07/09/17 09:23 Dose: 1 tab Vital Signs 07/08/17 07/08/17 07/08/17 14:39 15:32 16:41 Temperature 100.0 F Pulse Rate 71 Respiratory 20 24 16 Rate Blood Pressure 168/66 (mmHg) O2 Sat by Pulse 98 Oximetry 07/08/17 07/08/17 07/08/17 18:12 19:27 22:13 Temperature 100.2 F Pulse Rate 77 Respiratory 20 20 16 Rate Blood Pressure 175/65 (mmHg) O2 Sat by Pulse 99 Oximetry 07/08/17 07/08/17 07/09/17 22:15 23:31 00:13 Temperature 100.3 F Pulse Rate 68 Respiratory 16 18 16 Rate Blood Pressure 163/58 (mmHg) O2 Sat by Pulse 99 Oximetry 07/09/17 07/09/17 07/09/17 03:03 03:55 04:06 Temperature 99.0 F Pulse Rate 66 Respiratory 18 18 20 Rate Blood Pressure 157/57 (mmHg) O2 Sat by Pulse 100 Oximetry 07/09/17 07/09/17 07/09/17 05:03 07:47 08:00 Temperature 98.9 F Pulse Rate 68 Respiratory 20 22 20 Rate Blood Pressure 170/61 (mmHg) O2 Sat by Pulse 100 Oximetry 07/09/17 07/09/17 07/09/17 09:33 11:37 12:57 Temperature 99.3 F Pulse Rate 68 Respiratory 20 22 20 Rate Blood Pressure 169/71 (mmHg) O2 Sat by Pulse 98 Oximetry Oxygen Devices in Use Now: None Appearance: 52 yo F in NAD, aAOx3 Eyes: No Scleral Icterus, PERRLA Ears/Nose/Mouth/Throat: NL Teeth, Lips, Gums, Mucous Membranes Moist Neck: NL Appearance and Movements; NL JVP, Trachea Midline Respiratory: Symmetrical Chest Expansion and Respiratory Effort, Clear to Auscultation Cardiovascular: NL Sounds; No Murmurs; No JVD, RRR Abdominal: NL Sounds; No Tenderness; No Distention Lymphatic: No Cervical Adenopathy Extremities: No Edema Skin: No Nodules or Sclerosis, - - multiple scarred areas of excoriated skin all over body Neurological: Alert and Oriented x 3, NL Muscle Strength and Tone Result Diagrams: 07/07/17 09:32 07/09/17 06:20 Additional Lab and Data: Lab Results 07/06/17 07/06/17 07/06/17 Range/Units 11:37 11:37 11:37 WBC (3.5-10.8) 10^3/ul RBC (4.0-5.4) 10^6/ul Hgb (12.0-16.0) g/dl Hct (35-47) % MCV (80-97) fL MCH (27-31) pg MCHC (31-36) g/dl RDW (10.5-15) % Plt Count (150-450) 10^3/ul MPV (7.4-10.4) um3 Neut % (Auto) (38-83) % Lymph % (Auto) (25-47) % [place] % (Auto) (1-9) % Eos % (Auto) (0-6) % Baso % (Auto) (0-2) % Absolute Neuts (auto) (1.5-7.7) 10^3/ul Absolute Lymphs (auto) (1.0-4.8) 10^3/ul Absolute Monos (auto) (0-0.8) 10^3/ul Absolute Eos (auto) (0-0.6) 10^3/ul Absolute Basos (auto) (0-0.2) 10^3/ul Absolute Nucleated RBC 10^3/ul Nucleated RBC % INR (Anticoag Therapy) 1.19 H (0.89-1.11) APTT 25.2 L (26.0-36.3) seconds Carbon Monoxide Screen (<4.0) % Sodium 137 (133-145) mmol/L Potassium 3.3 L (3.5-5.0) mmol/L Chloride 101 (101-111) mmol/L Carbon Dioxide 28 (22-32) mmol/L Anion Gap 8 (2-11) mmol/L BUN 21 (6-24) mg/dL Creatinine 0.64 (0.51-0.95) mg/dL Est GFR ( Amer) 124.8 (>60) Est GFR (Non-Af Amer) 97.1 (>60) BUN/Creatinine Ratio 32.8 H (8-20) Glucose 179 H (70-100) mg/dL Lactic Acid 1.3 (0.5-2.0) mmol/L Calcium 9.4 (8.6-10.3) mg/dL Magnesium 2.2 (1.9-2.7) mg/dL Total Bilirubin 0.30 (0.2-1.0) mg/dL AST 15 (13-39) U/L ALT 17 (7-52) U/L Alkaline Phosphatase 74 (34-104) U/L Ammonia (16-53) mol/L Total Creatine Kinase 57 (10-223) U/L CK-MB (CK-2) 1.7 (0.6-6.3) ng/mL Troponin I 0.00 (<0.04) ng/mL C-Reactive Protein 217.10 H (< 5.00) mg/L B-Natriuretic Peptide ( - 100) pg/mL Total Protein 7.6 (6.4-8.9) g/dL Albumin 3.9 (3.2-5.2) g/dL Globulin 3.7 (2-4) g/dL Albumin/Globulin Ratio 1.1 (1-3) Lipase < 10 L (11.0-82.0) U/L TSH 0.50 (0.34-5.60) mcIU/mL Urine Color Urine Appearance Urine pH (5-9) Ur Specific [place] (1.010-1.030) Urine Protein (Negative) Urine Ketones (Negative) Urine Blood (Negative) Urine Nitrate (Negative) Urine Bilirubin (Negative) Urine Urobilinogen (Negative) Ur Leukocyte Esterase (Negative) Urine WBC (Auto) (Absent) Urine RBC (Auto) (Absent) Ur Squamous Epith Cells (Absent) Urine Bacteria (Absent) Hyaline Casts (Absent) Urine Glucose (Negative) Salicylates Pending Acetaminophen < 15 mcg/mL Serum Alcohol < 10 (<10) mg/dL 07/06/17 07/06/17 07/06/17 Range/Units 11:37 11:37 12:45 WBC 18.5 H (3.5-10.8) 10^3/ul RBC 4.52 (4.0-5.4) 10^6/ul Hgb 11.3 L (12.0-16.0) g/dl Hct 35 (35-47) % MCV 77 L (80-97) fL MCH 25 L (27-31) pg MCHC 32 (31-36) g/dl RDW 20 H (10.5-15) % Plt Count 342 (150-450) 10^3/ul MPV 8 (7.4-10.4) um3 Neut % (Auto) 89.4 H (38-83) % Lymph % (Auto) 2.6 L (25-47) % [place] % (Auto) 7.7 (1-9) % Eos % (Auto) 0 (0-6) % Baso % (Auto) 0.3 (0-2) % Absolute Neuts (auto) 16.5 H (1.5-7.7) 10^3/ul Absolute Lymphs (auto) 0.5 L (1.0-4.8) 10^3/ul Absolute Monos (auto) 1.4 H (0-0.8) 10^3/ul Absolute Eos (auto) 0 (0-0.6) 10^3/ul Absolute Basos (auto) 0.1 (0-0.2) 10^3/ul Absolute Nucleated RBC 0.01 10^3/ul Nucleated RBC % 0.1 INR (Anticoag Therapy) (0.89-1.11) APTT (26.0-36.3) seconds Carbon Monoxide Screen (<4.0) % Sodium (133-145) mmol/L Potassium (3.5-5.0) mmol/L Chloride (101-111) mmol/L Carbon Dioxide (22-32) mmol/L Anion Gap (2-11) mmol/L BUN (6-24) mg/dL Creatinine (0.51-0.95) mg/dL Est GFR ( Amer) (>60) Est GFR (Non-Af Amer) (>60) BUN/Creatinine Ratio (8-20) Glucose (70-100) mg/dL Lactic Acid (0.5-2.0) mmol/L Calcium (8.6-10.3) mg/dL Magnesium (1.9-2.7) mg/dL Total Bilirubin (0.2-1.0) mg/dL AST (13-39) U/L ALT (7-52) U/L Alkaline Phosphatase (34-104) U/L Ammonia 45 (16-53) mol/L Total Creatine Kinase (10-223) U/L CK-MB (CK-2) (0.6-6.3) ng/mL Troponin I (<0.04) ng/mL C-Reactive Protein (< 5.00) mg/L B-Natriuretic Peptide 152 H ( - 100) pg/mL Total Protein (6.4-8.9) g/dL Albumin (3.2-5.2) g/dL Globulin (2-4) g/dL Albumin/Globulin Ratio (1-3) Lipase (11.0-82.0) U/L TSH (0.34-5.60) mcIU/mL Urine Color Yellow Urine Appearance Cloudy Urine pH 6.0 (5-9) Ur Specific [place] 1.026 (1.010-1.030) Urine Protein 3+(>=500 mg/dl) H (Negative) Urine Ketones Trace H (Negative) Urine Blood 1+ H (Negative) Urine Nitrate Negative (Negative) Urine Bilirubin Negative (Negative) Urine Urobilinogen Negative (Negative) Ur Leukocyte Esterase Negative (Negative) Urine WBC (Auto) Trace(0-5/hpf) (Absent) Urine RBC (Auto) 3+(>10/hpf) H (Absent) Ur Squamous Epith Cells Present H (Absent) Urine Bacteria Absent (Absent) Hyaline Casts Present H (Absent) Urine Glucose 1+(50 mg/dl) H (Negative) Salicylates Acetaminophen mcg/mL Serum Alcohol (<10) mg/dL 07/06/17 Range/Units 12:45 WBC (3.5-10.8) 10^3/ul RBC (4.0-5.4) 10^6/ul Hgb (12.0-16.0) g/dl Hct (35-47) % MCV (80-97) fL MCH (27-31) pg MCHC (31-36) g/dl RDW (10.5-15) % Plt Count (150-450) 10^3/ul MPV (7.4-10.4) um3 Neut % (Auto) (38-83) % Lymph % (Auto) (25-47) % [place] % (Auto) (1-9) % Eos % (Auto) (0-6) % Baso % (Auto) (0-2) % Absolute Neuts (auto) (1.5-7.7) 10^3/ul Absolute Lymphs (auto) (1.0-4.8) 10^3/ul Absolute Monos (auto) (0-0.8) 10^3/ul Absolute Eos (auto) (0-0.6) 10^3/ul Absolute Basos (auto) (0-0.2) 10^3/ul Absolute Nucleated RBC 10^3/ul Nucleated RBC % INR (Anticoag Therapy) (0.89-1.11) APTT (26.0-36.3) seconds Carbon Monoxide Screen < 4 (<4.0) % Sodium (133-145) mmol/L Potassium (3.5-5.0) mmol/L Chloride (101-111) mmol/L Carbon Dioxide (22-32) mmol/L Anion Gap (2-11) mmol/L BUN (6-24) mg/dL Creatinine (0.51-0.95) mg/dL Est GFR ( Amer) (>60) Est GFR (Non-Af Amer) (>60) BUN/Creatinine Ratio (8-20) Glucose (70-100) mg/dL Lactic Acid (0.5-2.0) mmol/L Calcium (8.6-10.3) mg/dL Magnesium (1.9-2.7) mg/dL Total Bilirubin (0.2-1.0) mg/dL AST (13-39) U/L ALT (7-52) U/L Alkaline Phosphatase (34-104) U/L Ammonia (16-53) mol/L Total Creatine Kinase (10-223) U/L CK-MB (CK-2) (0.6-6.3) ng/mL Troponin I (<0.04) ng/mL C-Reactive Protein (< 5.00) mg/L B-Natriuretic Peptide ( - 100) pg/mL Total Protein (6.4-8.9) g/dL Albumin (3.2-5.2) g/dL Globulin (2-4) g/dL Albumin/Globulin Ratio (1-3) Lipase (11.0-82.0) U/L TSH (0.34-5.60) mcIU/mL Urine Color Urine Appearance Urine pH (5-9) Ur Specific [place] (1.010-1.030) Urine Protein (Negative) Urine Ketones (Negative) Urine Blood (Negative) Urine Nitrate (Negative) Urine Bilirubin (Negative) Urine Urobilinogen (Negative) Ur Leukocyte Esterase (Negative) Urine WBC (Auto) (Absent) Urine RBC (Auto) (Absent) Ur Squamous Epith Cells (Absent) Urine Bacteria (Absent) Hyaline Casts (Absent) Urine Glucose (Negative) Salicylates Acetaminophen mcg/mL Serum Alcohol (<10) mg/dL Assess/Plan/Problems-Billing Assessment: 52 yo f with h/o HTN, DM2 presents with back pain x 3 days, developed a fever within a few hours of her admission - Patient Problems (1) Vertebral osteomyelitis, acute Comment: due to Staph, MRSA negative. with myositis and likely perinephric abscess cont Ancef. Appreciate Dr. Pepper's consult TTE shows normal valves. Plan for 8 weeks IV antibiotics. Repeat blood cx ordered for 07/09/17 (2) HTN (hypertension) Comment: uncontrolled cont lopressor(started at admission) and home lisinopril cont hydralazine prn added Norvasc on 07/08/17, increased the dose to 10 mg on 07/09/17 (3) DM2 (diabetes mellitus, type 2) Comment: cont ISS, restarting glipizide (4) Hypokalemia Comment: replacing PO (5) DVT prophylaxis Comment: heparin sc Status and Disposition: inpatient
[2017-07-09] MEDS: Acetaminophen TAB* 325 MG PO PRN (17:33)
[2017-07-09] MEDS: hydrALAZINE IV* 20 MG/ML VIAL IV SLOW PU PRN (20:45)
[2017-07-09] MEDS: Nicotine Patch Removal NOTE PATCH OFF SCH ×2 (20:46→23:00)
[2017-07-09] MEDS: Ondansetron INJ* 2 MG/ML VIAL IV PRN (20:54)
[2017-07-10] MEDS: ceFAZolin 2 GM PREMIX (*) 100 ML IVPB SCH ×3 (00:47→17:29)
[2017-07-10] MEDS: Heparin VIAL(*) 5000 UNITS/ML VIAL (FIVE THOUSAND) SUBCUT SCH ×3 (05:38→20:12)
[2017-07-10] MEDS: Docusate CAP* 100 MG PO SCH ×2 (08:01→20:09)
[2017-07-10] MEDS: Omeprazole CAP* 20 MG PO SCH (08:01)
[2017-07-10] MEDS: Nicotine PATCH 14 MG/24 HR* PATCH TRANSDERM SCH (08:02)
[2017-07-10] MEDS: Lisinopril TAB* 10 MG PO SCH (08:02)
[2017-07-10] MEDS: Metoprolol Tartrate TAB* 25 MG PO SCH ×2 (08:02→20:10)
[2017-07-10] MEDS: glipiZIDE TAB.XL* 5 MG PO SCH (08:02)
[2017-07-10] MEDS: amLODIPine TAB* 5 MG PO SCH (08:02)
[2017-07-10] MEDS: Insulin LISPRO* 1 UNITS UNIT SUBCUT SCH ×3 (08:08→16:40)
[2017-07-10] MEDS: Senna TAB PO SCH ×2 (08:37→20:09)
--- NOTE | 2017-07-10 10:14 | PN ---
Progress Note - Progress Note Date of Service: 07/10/17 SOAP: Subjective: CC: spine infection HPI: 52 year old woman with low back and leg pain, no leg weakness or numbness. Back pain is improved, down to 4/10. Walking around. No problems with IV. Objective: [] Vital Signs Temp 36.7 C 07/10/17 08:43 Pulse 64 07/10/17 08:43 Resp 18 07/10/17 09:45 BP 148/64 07/10/17 08:43 Pulse Ox 98 07/10/17 08:43 Intake & Output 07/09/17 07/10/17 07/10/17 18:59 06:59 18:59 Intake Total 190 0 235 Balance 190 0 235 Intake: IV Fluids 20 30 ABX - CEFAZOLIN 20 NS 30 IVPB 60 205 ABX - CEFAZOLIN 60 205 Oral 110 0 Other: Estimated Void Medium # Bowel Movements 0 # Voids 0 2 Gen:awake, no distress HEENT:PERRL, MMM Neck:supple Heart:RRR no murmur Lungs:CTA BL Abd:+BS NTND soft Skin: no rash MSK: no spine tenderness Neuro: strength 5/5 quad/TA/gastroc BL sensation intact to light touch BL LE , no LE clonus BL Laboratory Results - last 24 hr 07/09/17 07/09/17 07/10/17 11:20 16:28 07:59 POC Glucose (mg/dL) 260 H 199 H 241 H Assessment: 1. MSSA septicemia, present on admission, resolved 2. MSSA vertebral osteodiskitis, septic facet joint and epidural phlegmon 3. T2 diabetes Plan: 1. ancef 2 gm IV Q8hrs day ; weekly CBC, CMP, CRP. 35 minutes floor time >50% face to face in counseling regarding IV antibiotic treatments, monitoring, and side effects; all questions answered.
[2017-07-10 12:23] LABS: BUN/Creatinine Ratio 20.8 (8-20); Calcium 8.4 mg/dL (8.6-10.3); EGFR African American 155.2 (>60); EGFR Non-African American 120.7 (>60); Potassium 3.2 mmol/L (3.5-5.0)
[2017-07-10] MEDS: hydrALAZINE IV* 20 MG/ML VIAL IV SLOW PU PRN ×2 (12:32→16:25)
--- NOTE | 2017-07-10 15:53 | PN ---
Subjective Date of Service: 07/10/17 Interval History: Pt fels much better. still constipated, not interested in [place] meds, stated that she will "go at home". Objective Active Medications: Acetaminophen (Tylenol Tab*) 650 mg PO Q4H PRN PRN Reason: FEVER/PAIN Last Admin: 07/09/17 17:33 Dose: 650 mg Hydrocodone Bitart/Acetaminophen ([employer] 5-325 Tab*) 1 tab PO Q4H PRN PRN Reason: PAIN Last Admin: 07/09/17 20:45 Dose: 1 tab Amlodipine Besylate (Norvasc Tab*) 10 mg PO DAILY [facility] Last Admin: 07/10/17 08:02 Dose: Not Given Bisacodyl (Dulcolax Supp*) 10 mg [place] DAILY PRN PRN Reason: CONSTIPATION Dextrose (D50w Syringe 50 Ml*) 12.5 gm IV PUSH .FOR FS < 60 - SS PRN PRN Reason: FS < 60 Docusate Sodium (Colace Cap*) 100 mg PO BID [facility] Last Admin: 07/10/17 08:01 Dose: Not Given Glipizide (Glucotrol Xl*) 5 mg PO QAM [facility] Last Admin: 07/10/17 08:02 Dose: Not Given Heparin Sodium (Porcine) (Heparin Vial(*)) 5,000 units SUBCUT Q8HR [facility] Last Admin: 07/10/17 13:29 Dose: 5,000 units Hydralazine HCl (Apresoline Iv*) 5 mg IV SLOW PU Q6H PRN PRN Reason: BLOOD PRESSURE Last Admin: 07/10/17 12:32 Dose: 5 mg Cefazolin Sodium/Dextrose (Kefzol 2 Gm Premix(*)) 100 mls @ 200 mls/hr IVPB Q8H [facility] Last Admin: 07/10/17 09:14 Dose: 200 mls/hr Insulin Human Lispro (Humalog*) 0 units SUBCUT AC [facility] PRN Reason: Protocol Last Admin: 07/10/17 11:39 Dose: 6 units Lisinopril (Prinivil Tab*) 20 mg PO DAILY [facility] Last Admin: 07/10/17 08:02 Dose: Not Given Magnesium Hydroxide (Milk Of Magnesia Liq*) 30 ml PO Q6H PRN PRN Reason: DISCOMFORT Last Admin: 07/09/17 16:28 Dose: 30 ml Metoprolol Tartrate (Lopressor Tab*) 25 mg PO Q12HR [facility] Last Admin: 07/10/17 08:02 Dose: Not Given Morphine Sulfate (Morphine Inj (Syringe)*) 1 mg IV Q4H PRN PRN Reason: PAIN Last Admin: 07/09/17 17:33 Dose: 1 mg Nicotine (Nicotine Inhaler*) 10 mg INH Q2H PRN PRN Reason: CRAVING Nicotine (Nicotine Patch 14 Mg/24 Hr*) 1 patch TRANSDERM DAILY [facility] Last Admin: 07/10/17 08:02 Dose: Not Given Omeprazole (Prilosec Cap*) 40 mg PO DAILY@0730 [facility] Last Admin: 07/10/17 08:01 Dose: Not Given Ondansetron HCl (Zofran Inj*) 4 mg IV Q6H PRN PRN Reason: NAUSEA Last Admin: 07/09/17 20:54 Dose: 4 mg Pharmacy Profile Note (Nicotine Patch Removal Note*) 1 note PATCH OFF 2100 [facility] Last Admin: 07/09/17 23:00 Dose: 1 note Senna (Senokot Tab*) 1 tab PO BID [facility] Last Admin: 07/10/17 08:37 Dose: Not Given Vital Signs 07/09/17 07/09/17 07/09/17 16:37 17:33 18:33 Temperature 99.7 F Pulse Rate 102 Respiratory 20 20 14 Rate Blood Pressure 176/76 (mmHg) O2 Sat by Pulse 97 Oximetry 07/09/17 07/09/17 07/09/17 20:02 20:33 20:45 Temperature 98.4 F Pulse Rate 67 Respiratory 16 16 16 Rate Blood Pressure 171/61 (mmHg) O2 Sat by Pulse 100 Oximetry 07/09/17 07/09/17 07/09/17 21:21 22:45 23:35 Temperature 98.2 F Pulse Rate 68 59 Respiratory 16 14 16 Rate Blood Pressure 160/64 138/71 (mmHg) O2 Sat by Pulse 100 99 Oximetry 07/10/17 07/10/17 07/10/17 03:14 08:43 09:45 Temperature 98.2 F 98.1 F Pulse Rate 64 64 Respiratory 16 16 18 Rate Blood Pressure 164/70 148/64 (mmHg) O2 Sat by Pulse 98 98 Oximetry 07/10/17 11:55 Temperature Pulse Rate 70 Respiratory 18 Rate Blood Pressure 178/65 (mmHg) O2 Sat by Pulse 98 Oximetry Oxygen Devices in Use Now: None Appearance: 52 yo F in nAD, AAOx3 Eyes: No Scleral Icterus, PERRLA Ears/Nose/Mouth/Throat: NL Teeth, Lips, Gums, Mucous Membranes Moist Neck: NL Appearance and Movements; NL JVP Respiratory: Symmetrical Chest Expansion and Respiratory Effort, Clear to Auscultation Cardiovascular: NL Sounds; No Murmurs; No JVD Abdominal: NL Sounds; No Tenderness; No Distention Lymphatic: No Cervical Adenopathy Extremities: No Edema, No Clubbing, Cyanosis Skin: No Nodules or Sclerosis, - - multiple scarred excoriations all over pt's body Neurological: Alert and Oriented x 3, NL Muscle Strength and Tone Result Diagrams: 07/07/17 09:32 07/10/17 11:10 Additional Lab and Data: Lab Results 07/06/17 07/06/17 07/06/17 Range/Units 11:37 11:37 11:37 WBC (3.5-10.8) 10^3/ul RBC (4.0-5.4) 10^6/ul Hgb (12.0-16.0) g/dl Hct (35-47) % MCV (80-97) fL MCH (27-31) pg MCHC (31-36) g/dl RDW (10.5-15) % Plt Count (150-450) 10^3/ul MPV (7.4-10.4) um3 Neut % (Auto) (38-83) % Lymph % (Auto) (25-47) % [place] % (Auto) (1-9) % Eos % (Auto) (0-6) % Baso % (Auto) (0-2) % Absolute Neuts (auto) (1.5-7.7) 10^3/ul Absolute Lymphs (auto) (1.0-4.8) 10^3/ul Absolute Monos (auto) (0-0.8) 10^3/ul Absolute Eos (auto) (0-0.6) 10^3/ul Absolute Basos (auto) (0-0.2) 10^3/ul Absolute Nucleated RBC 10^3/ul Nucleated RBC % INR (Anticoag Therapy) 1.19 H (0.89-1.11) APTT 25.2 L (26.0-36.3) seconds Carbon Monoxide Screen (<4.0) % Sodium 137 (133-145) mmol/L Potassium 3.3 L (3.5-5.0) mmol/L Chloride 101 (101-111) mmol/L Carbon Dioxide 28 (22-32) mmol/L Anion Gap 8 (2-11) mmol/L BUN 21 (6-24) mg/dL Creatinine 0.64 (0.51-0.95) mg/dL Est GFR ( Amer) 124.8 (>60) Est GFR (Non-Af Amer) 97.1 (>60) BUN/Creatinine Ratio 32.8 H (8-20) Glucose 179 H (70-100) mg/dL Lactic Acid 1.3 (0.5-2.0) mmol/L Calcium 9.4 (8.6-10.3) mg/dL Magnesium 2.2 (1.9-2.7) mg/dL Total Bilirubin 0.30 (0.2-1.0) mg/dL AST 15 (13-39) U/L ALT 17 (7-52) U/L Alkaline Phosphatase 74 (34-104) U/L Ammonia (16-53) mol/L Total Creatine Kinase 57 (10-223) U/L CK-MB (CK-2) 1.7 (0.6-6.3) ng/mL Troponin I 0.00 (<0.04) ng/mL C-Reactive Protein 217.10 H (< 5.00) mg/L B-Natriuretic Peptide ( - 100) pg/mL Total Protein 7.6 (6.4-8.9) g/dL Albumin 3.9 (3.2-5.2) g/dL Globulin 3.7 (2-4) g/dL Albumin/Globulin Ratio 1.1 (1-3) Lipase < 10 L (11.0-82.0) U/L TSH 0.50 (0.34-5.60) mcIU/mL Urine Color Urine Appearance Urine pH (5-9) Ur Specific [place] (1.010-1.030) Urine Protein (Negative) Urine Ketones (Negative) Urine Blood (Negative) Urine Nitrate (Negative) Urine Bilirubin (Negative) Urine Urobilinogen (Negative) Ur Leukocyte Esterase (Negative) Urine WBC (Auto) (Absent) Urine RBC (Auto) (Absent) Ur Squamous Epith Cells (Absent) Urine Bacteria (Absent) Hyaline Casts (Absent) Urine Glucose (Negative) Salicylates Pending Acetaminophen < 15 mcg/mL Serum Alcohol < 10 (<10) mg/dL 07/06/17 07/06/17 07/06/17 Range/Units 11:37 11:37 12:45 WBC 18.5 H (3.5-10.8) 10^3/ul RBC 4.52 (4.0-5.4) 10^6/ul Hgb 11.3 L (12.0-16.0) g/dl Hct 35 (35-47) % MCV 77 L (80-97) fL MCH 25 L (27-31) pg MCHC 32 (31-36) g/dl RDW 20 H (10.5-15) % Plt Count 342 (150-450) 10^3/ul MPV 8 (7.4-10.4) um3 Neut % (Auto) 89.4 H (38-83) % Lymph % (Auto) 2.6 L (25-47) % [place] % (Auto) 7.7 (1-9) % Eos % (Auto) 0 (0-6) % Baso % (Auto) 0.3 (0-2) % Absolute Neuts (auto) 16.5 H (1.5-7.7) 10^3/ul Absolute Lymphs (auto) 0.5 L (1.0-4.8) 10^3/ul Absolute Monos (auto) 1.4 H (0-0.8) 10^3/ul Absolute Eos (auto) 0 (0-0.6) 10^3/ul Absolute Basos (auto) 0.1 (0-0.2) 10^3/ul Absolute Nucleated RBC 0.01 10^3/ul Nucleated RBC % 0.1 INR (Anticoag Therapy) (0.89-1.11) APTT (26.0-36.3) seconds Carbon Monoxide Screen (<4.0) % Sodium (133-145) mmol/L Potassium (3.5-5.0) mmol/L Chloride (101-111) mmol/L Carbon Dioxide (22-32) mmol/L Anion Gap (2-11) mmol/L BUN (6-24) mg/dL Creatinine (0.51-0.95) mg/dL Est GFR ( Amer) (>60) Est GFR (Non-Af Amer) (>60) BUN/Creatinine Ratio (8-20) Glucose (70-100) mg/dL Lactic Acid (0.5-2.0) mmol/L Calcium (8.6-10.3) mg/dL Magnesium (1.9-2.7) mg/dL Total Bilirubin (0.2-1.0) mg/dL AST (13-39) U/L ALT (7-52) U/L Alkaline Phosphatase (34-104) U/L Ammonia 45 (16-53) mol/L Total Creatine Kinase (10-223) U/L CK-MB (CK-2) (0.6-6.3) ng/mL Troponin I (<0.04) ng/mL C-Reactive Protein (< 5.00) mg/L B-Natriuretic Peptide 152 H ( - 100) pg/mL Total Protein (6.4-8.9) g/dL Albumin (3.2-5.2) g/dL Globulin (2-4) g/dL Albumin/Globulin Ratio (1-3) Lipase (11.0-82.0) U/L TSH (0.34-5.60) mcIU/mL Urine Color Yellow Urine Appearance Cloudy Urine pH 6.0 (5-9) Ur Specific [place] 1.026 (1.010-1.030) Urine Protein 3+(>=500 mg/dl) H (Negative) Urine Ketones Trace H (Negative) Urine Blood 1+ H (Negative) Urine Nitrate Negative (Negative) Urine Bilirubin Negative (Negative) Urine Urobilinogen Negative (Negative) Ur Leukocyte Esterase Negative (Negative) Urine WBC (Auto) Trace(0-5/hpf) (Absent) Urine RBC (Auto) 3+(>10/hpf) H (Absent) Ur Squamous Epith Cells Present H (Absent) Urine Bacteria Absent (Absent) Hyaline Casts Present H (Absent) Urine Glucose 1+(50 mg/dl) H (Negative) Salicylates Acetaminophen mcg/mL Serum Alcohol (<10) mg/dL 07/06/17 Range/Units 12:45 WBC (3.5-10.8) 10^3/ul RBC (4.0-5.4) 10^6/ul Hgb (12.0-16.0) g/dl Hct (35-47) % MCV (80-97) fL MCH (27-31) pg MCHC (31-36) g/dl RDW (10.5-15) % Plt Count (150-450) 10^3/ul MPV (7.4-10.4) um3 Neut % (Auto) (38-83) % Lymph % (Auto) (25-47) % [place] % (Auto) (1-9) % Eos % (Auto) (0-6) % Baso % (Auto) (0-2) % Absolute Neuts (auto) (1.5-7.7) 10^3/ul Absolute Lymphs (auto) (1.0-4.8) 10^3/ul Absolute Monos (auto) (0-0.8) 10^3/ul Absolute Eos (auto) (0-0.6) 10^3/ul Absolute Basos (auto) (0-0.2) 10^3/ul Absolute Nucleated RBC 10^3/ul Nucleated RBC % INR (Anticoag Therapy) (0.89-1.11) APTT (26.0-36.3) seconds Carbon Monoxide Screen < 4 (<4.0) % Sodium (133-145) mmol/L Potassium (3.5-5.0) mmol/L Chloride (101-111) mmol/L Carbon Dioxide (22-32) mmol/L Anion Gap (2-11) mmol/L BUN (6-24) mg/dL Creatinine (0.51-0.95) mg/dL Est GFR ( Amer) (>60) Est GFR (Non-Af Amer) (>60) BUN/Creatinine Ratio (8-20) Glucose (70-100) mg/dL Lactic Acid (0.5-2.0) mmol/L Calcium (8.6-10.3) mg/dL Magnesium (1.9-2.7) mg/dL Total Bilirubin (0.2-1.0) mg/dL AST (13-39) U/L ALT (7-52) U/L Alkaline Phosphatase (34-104) U/L Ammonia (16-53) mol/L Total Creatine Kinase (10-223) U/L CK-MB (CK-2) (0.6-6.3) ng/mL Troponin I (<0.04) ng/mL C-Reactive Protein (< 5.00) mg/L B-Natriuretic Peptide ( - 100) pg/mL Total Protein (6.4-8.9) g/dL Albumin (3.2-5.2) g/dL Globulin (2-4) g/dL Albumin/Globulin Ratio (1-3) Lipase (11.0-82.0) U/L TSH (0.34-5.60) mcIU/mL Urine Color Urine Appearance Urine pH (5-9) Ur Specific [place] (1.010-1.030) Urine Protein (Negative) Urine Ketones (Negative) Urine Blood (Negative) Urine Nitrate (Negative) Urine Bilirubin (Negative) Urine Urobilinogen (Negative) Ur Leukocyte Esterase (Negative) Urine WBC (Auto) (Absent) Urine RBC (Auto) (Absent) Ur Squamous Epith Cells (Absent) Urine Bacteria (Absent) Hyaline Casts (Absent) Urine Glucose (Negative) Salicylates Acetaminophen mcg/mL Serum Alcohol (<10) mg/dL Microbiology and Other Data: Microbiology 07/09/17 07:34 Aerobic Blood Culture - Preliminary Blood Venous No Growth Day 1 Anaerobic Blood Culture - Preliminary No Growth Day 1 07/09/17 06:20 Aerobic Blood Culture - Preliminary Blood Venous No Growth Day 1 Anaerobic Blood Culture - Preliminary No Growth Day 1 Assess/Plan/Problems-Billing Assessment: 52 yo f with h/o HTN, DM2 presents with back pain x 3 days, developed a fever within a few hours of her admission - Patient Problems (1) Vertebral osteomyelitis, acute Comment: MSSA septicemia due to vertebral osteodiskitis, septic facet joint and epidural phlegmon with myositis and likely perinephric abscess cont Ancef. Appreciate Dr. Pepper's consult TTE shows normal valves. Plan for 8 weeks IV antibiotics. Repeat blood cx NTD PICC ordered. Pt will need ancef 2 GM Q8H x 8 weeks total. 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 Pt is planned to leave after her 9 AM dose (2) HTN (hypertension) Comment: uncontrolled cont lopressor(started at admission) and home lisinopril (increasing dose form 20 QAM to 20 mg BID today) cont hydralazine prn added Norvasc on 07/08/17, increased the dose to 10 mg on 07/09/17 (3) DM2 (diabetes mellitus, type 2) Comment: cont ISS, glipizide, restarting metformin (4) Hypokalemia Comment: replacing PO (5) DVT prophylaxis Comment: heparin sc Status and Disposition: inpatient, likely d/c in AM
[2017-07-10] MEDS ORDERED: Potassium Chlor TAB* 20 MEQ TAB.ER PO ONE (15:54)
[2017-07-10] MEDS: HYDROcodone/ACETAMIN 5-325 MG* 1 TAB PO PRN (16:40)
[2017-07-10] MEDS: metFORMIN* 500 MG TAB PO SCH (17:29)
[2017-07-10] MEDS: Nicotine Patch Removal NOTE PATCH OFF SCH (20:11)
[2017-07-10] MEDS ORDERED: Lisinopril TAB* 10 MG PO SCH (21:00)
[2017-07-10] MEDS: Acetaminophen TAB* 325 MG PO PRN (21:47)
[2017-07-10] MEDS: Morphine INJ* 2 MG/ML 1 ML SYRINGE (TWO MG - NEW SYRINGE VERSION) IV PRN (21:47)
[2017-07-11] MEDS: ceFAZolin 2 GM PREMIX (*) 100 ML IVPB SCH ×2 (01:37→08:25)
[2017-07-11] MEDS: Heparin VIAL(*) 5000 UNITS/ML VIAL (FIVE THOUSAND) SUBCUT SCH (05:58)
[2017-07-11] MEDS: Omeprazole CAP* 20 MG PO SCH (05:59)
[2017-07-11 06:29] LABS: BUN/Creatinine Ratio 23.5 (8-20); Calcium 8.6 mg/dL (8.6-10.3); EGFR African American 116.4 (>60); EGFR Non-African American 90.5 (>60); Potassium 3.2 mmol/L (3.5-5.0)
[2017-07-11] MEDS ORDERED: Potassium Chlor TAB* 20 MEQ TAB.ER PO ONE (07:22)
[2017-07-11 07:54] LABS: Magnesium 1.9 mg/dL (1.9-2.7)
[2017-07-11 08:01] VITALS: BP 152/56
[2017-07-11] MEDS: Insulin LISPRO* 1 UNITS UNIT SUBCUT SCH (08:13)
[2017-07-11] MEDS: Senna TAB PO SCH (08:14)
[2017-07-11] MEDS: Docusate CAP* 100 MG PO SCH (08:15)
[2017-07-11] MEDS: metFORMIN* 500 MG TAB PO SCH (08:15)
[2017-07-11] MEDS: Lisinopril TAB* 10 MG PO SCH (08:15)
[2017-07-11] MEDS: glipiZIDE TAB.XL* 5 MG PO SCH (08:15)
[2017-07-11] MEDS: amLODIPine TAB* 5 MG PO SCH (08:15)
[2017-07-11] MEDS: Metoprolol Tartrate TAB* 25 MG PO SCH (08:16)
[2017-07-11] MEDS: Nicotine PATCH 14 MG/24 HR* PATCH TRANSDERM SCH (08:21)
--- NOTE | 2017-07-12 03:25 | DS ---
CC: Dr. Nguyen; Bogdan Pepper MD * DISCHARGE SUMMARY: DATE OF ADMISSION: 07/06/17 DATE OF DISCHARGE: 07/11/17 PRIMARY CARE PROVIDER: Dr. Nguyen. CONSULTING INFECTIOUS DISEASE SPECIALIST: Dr. Pepper. DISCHARGING PROVIDER: JERED Quinn SUPERVISING PHYSICIAN: Bruno Echavarria MD * (DICTATED BY JERED QUINN) PRIMARY DISCHARGE DIAGNOSES: 1. Methicillin-sensitive Staphylococcus aureus septicemia secondary to vertebral osteodiskitis with associated septic facet joint and epidural phlegmon and associated myositis. 2. Hypertension - the patient did require up-titration of her antihypertensive medications as well as initiation of additional antihypertensives due to persistent hypertension during her hospital stay. SECONDARY DISCHARGE DIAGNOSIS: [id number] diabetes - patient was noted to be hyperglycemic during her hospital stay, metformin increased. DISCHARGE MEDICATIONS: 1. Soma 350 mg p.o. 3 times daily as needed. 2. Ancef 2 g IV q.8 hours for a total of 8 weeks, through 09/02/17. 3. Hydrocodone/acetaminophen 10/325 tablet p.o. 3 times daily as needed for pain. 4. Ibuprofen 800 mg p.o. daily. 5. Lisinopril 20 mg p.o. twice daily. 6. Metformin 1000 mg p.o. twice daily. 7. Metoprolol tartrate 25 mg p.o. twice daily. 8. Omeprazole 20 mg p.o. daily. 9. Zofran 4 mg p.o. q.6 hours as needed for nausea. 10. Simvastatin 40 mg p.o. daily. 11. Amlodipine 10 mg p.o. daily. 12. Glipizide extended release 5 mg p.o. daily. Medication changes: 1. Start amlodipine. 2. Start metoprolol. 3. Increase lisinopril. 4. Increase metformin. 5. Ancef x8 weeks. HOSPITAL IMAGIN. Chest x-ray demonstrates no acute process. 2. Lumbar spine MRI demonstrates effusions within L4-5 facet joints and mild adjacent bone marrow edema and enhancement in the adjacent posterior paraspinal muscles extending down to the L5-S1 level and more prominent on the left side suspicious for septic arthritis, osteomyelitis, and myositis. There is edema in the perinephric spaces bilaterally suggesting possibility of pyelonephritis. 3. Renal ultrasound demonstrates a small amount of fluid in the right pararenal space correlating with MRI findings, which is nonspecific, possibly indicating pyelonephritis and a nonobstructing right renal calculi. No hydronephrosis noted. 4. Transthoracic echocardiogram demonstrates normal-appearing left ventricle, moderate LVH, no significant valvular heart disease and specifically no evidence of valvular masses. HOSPITAL COURSE: This is a 52-year-old female with [id number] diabetes and hypertension who presented to the emergency department initially with complaints of back pain and then returned with complaints of altered mental status. The patient had felt that she had strained her back at work and been seen in the emergency department a couple of days prior to her admission. She was prescribed narcotics and a muscle relaxant at that time, but she was already prescribed a muscle relaxant at home and took both Soma and Flexeril together and returned to the emergency department the next day with some element of confusion. She was noted to be afebrile in the emergency department but had a notable leukocytosis and elevated CRP. Her urinalysis and chest x- ray were unremarkable. Due to the patient's obvious signs for infection but no clear signs of source associated with significantly elevated inflammatory markers and complaints of back pain, there became a concern for an epidural abscess. The patient underwent an MRI of the lumbar spine, which demonstrated findings consistent with an acute osteomyelitis and facet joint septic arthritis with an associated myositis. Blood cultures grew methicillin-sensitive Staph aureus. Infectious disease specialist, Dr. Chaim Pepper was consulted. A transthoracic echocardiogram was completed, which showed no evidence of endocarditis. The patient's repeat blood cultures were negative for additional growth. The patient was eventually transitioned to targeted therapy of Ancef. She reported improvement in her back pain with the antibiotic treatment. She remained afebrile with resolution of her leukocytosis. Of note, the patient was hyperglycemic and hypertensive during her hospital stay. Metoprolol was added to her antihypertensives as well as increasing her lisinopril and added amlodipine. Her hemoglobin A1c was noted to 7.7% and for that reason recommended increasing her metformin. The hypoglycemia observed in the hospital was likely due to her acute infection. DISPOSITION AND FOLLOWUP PLAN: The patient is being discharged home but requires a total of 8 weeks of IV Ancef per the direction of Dr. Chaim Pepper. This will be completed as home infusion therapy every 8 hours. The patient will be unable to work during this period of time and did receive a work excuse. The patient is required to complete weekly labs per Infectious Disease recommendations including a CBC, comprehensive metabolic panel, and CRP. Multiple medication changes to her antihypertensives and hypoglycemic agents as described above. Followup will be with Dr. Chaim Pepper in approximately 2 weeks and she should also see her primary care provider within the next week regarding this hospitalization. JERED QUINN [id number]/[facility] #: [id number]
== END 2017-07-11 12:45 | disposition home or self-care (01) | DRG 871 ==
LOC: ED 08:51 → MED 15:00 → OBSVTOIN 07-07 10:00
PROVIDERS: ADMIT Internal Medicine; ATTEND Hospitalist
PROC: 02HV33Z Insertion of Infusion Device into Superior Vena Cava, Percutaneous Approach (ICD-10-PCS; principal; 2017-07-11)
DX: A41.01 Sepsis due to Methicillin susceptible Staphylococcus aureus (principal); G06.1 Intraspinal abscess and granuloma; M46.26 Osteomyelitis of vertebra, lumbar region; M46.46 Discitis, unspecified, lumbar region; M60.88 Other myositis, other site; I10 Essential (primary) hypertension; F17.210 Nicotine dependence, cigarettes, uncomplicated; E11.65 Type 2 diabetes mellitus with hyperglycemia; M48.8X6 Other specified spondylopathies, lumbar region; B95.61 Methicillin susceptible Staphylococcus aureus infection as the cause of diseases classified elsewhere; E87.6 Hypokalemia; Z79.84 Long term (current) use of oral hypoglycemic drugs; Z79.1 Long term (current) use of non-steroidal anti-inflammatories (NSAID); Z79.899 Other long term (current) drug therapy; Z88.6 Allergy status to analgesic agent; Z82.49 Family history of ischemic heart disease and other diseases of the circulatory system
CPT/HCPCS: 36415; 71010; 72131; 72158; 74176; 76775; 80048; 80053; 80307; 80320; 80329; 81003; 81015; 82140; 82375; 82550; 82553; 83036; 83605; 83690; 83735; 83880; 84443; 84484; 85025; 85610; 85730; 86140; 86703; 87040; 87077; 87150; 87186; 87205; 93005; 93306; 96374; 96375; 99285; 99406; A9270-GY; A9579; C1751; G0378; G0480; J0360; J0690; J0696; J1644; J1885; J2270; J2360; J2405; J3370; J3480

== ENCOUNTER 2017-09-04 22:39 | Emergency (ER) | payer MEDICARE, MEDICAID ==
[2017-09-05 02:29] VITALS: BP 171/77
--- NOTE | 2017-09-05 02:42 | ED ---
Harmeet Muse Gabriel, scribed for Carson Tafoya on 09/05/17 at 0032 . Complex/Multi-Sys Presentation - HPI Summary HPI Summary: This patient is a 52 year old F presenting to [facility] with a chief complaint of puss coming from PICC line since earlier today. She has the PICC line in place to treat an infection in her spine. Her last antibiotic treatment was given today. The patient rates the pain 2/10 in severity. - History Of Current Complaint Chief Complaint: EDGeneral Time Seen by Provider: 09/05/17 00:16 Hx Obtained From: Patient Onset/Duration: Still Present Timing: Constant Severity Currently: Mild - Allergies/Home Medications Allergies/Adverse Reactions: Allergies Allergy/AdvReac Type Severity Reaction Status Date / Time Cefazolin Allergy Severe Difficulty Verified 08/16/17 14:49 Breathing Aspirin Allergy Rash Verified 08/16/17 14:47 PMH/Surg Hx/FS Hx/Imm Hx Previously Healthy: No Endocrine/Hematology History: Reports: Hx Diabetes Cardiovascular History: Reports: Hx Hypercholesterolemia, Hx Hypertension Denies: Hx Pacemaker/ICD Musculoskeletal History: Reports: Other Musculoskeletal History - shoulder surgery Sensory History: Denies: Hx Contacts or Glasses, Hx Hearing Aid Opthamlomology History: Denies: Hx Contacts or Glasses Psychiatric History: Denies: Hx Panic Disorder - Surgical History Surgery Procedure, Year, and Place: Facial repair, dental work Infectious Disease History: No Infectious Disease History: Denies: Traveled Outside the [place] in Last 30 Days - Family History Known Family History: Positive: Hypertension, Diabetes - Social History Alcohol Use: None Hx Substance Use: No Substance Use Type: Reports: None Hx Tobacco Use: Yes Smoking Status (MU): Current Every Day Smoker Type: Cigarettes Amount Used/How Often: 1 pack over 1 1/2 weeks Review of Systems Positive: Other - puss coming from PICC line . Negative: Fever Negative: Slurred Speech All Other Systems Reviewed And Are Negative: Yes Physical Exam - Summary Physical Exam Summary: Appearance: Well appearing, no pain distress Skin: warm, dry, reflects adequate perfusion Head/face: normal Eyes: EOMI, CARLIE ENT: normal Neck: supple, non-tender Respiratory: CTA, breath sounds present Cardiovascular: RRR, pulses symmetrical Abdomen: non-tender, soft Bowel: present Musculoskeletal: normal, strength/ROM intact Extremities: PICC line rt arm, no nv deficit Triage Information Reviewed: Yes Vital Signs On Initial Exam: Initial Vitals Temp Pulse Resp BP Pulse Ox 97.9 F 84 16 130/95 100 09/04/17 22:43 09/04/17 22:43 09/04/17 22:43 09/04/17 22:43 09/04/17 22:43 Vital Signs Reviewed: Yes - [place] Coma Scale Coma Scale Total: 15 Diagnostics - Vital Signs Vital Signs Temp Pulse Resp BP Pulse Ox 09/04/17 22:43 97.9 F 84 16 130/95 100 - Laboratory Lab Statement: Any lab studies that have been ordered have been reviewed, and results considered in the medical decision making process. Complex Multi-Symp Course/Dx - Diagnoses Differential Diagnoses/HQI/PQRI: Other - picc line removal encounter Provider Diagnoses: PICC (peripherally inserted central catheter) removal Discharge - Discharge Plan Condition: Stable Disposition: HOME Patient Education Materials: Peripherally Inserted Central Catheters and Midline Catheters (ED) Referrals: Boy ANDERSON,Navjot Jay [Primary Care Provider] - 3 Days Additional Instructions: RETURN TO THE EMERGENCY DEPARTMENT FOR CHANGING OR WORSENING SYMPTOMS. The documentation as recorded by the Harmeet urias Gabriel accurately reflects the service I personally performed and the decisions made by Michelet davis Emmanuel.
== END 2017-09-05 02:30 | disposition home or self-care (01) ==
LOC: ED 22:39
DX: Z45.2 Encounter for adjustment and management of vascular access device (principal); E11.9 Type 2 diabetes mellitus without complications; Z88.6 Allergy status to analgesic agent; Z88.1 Allergy status to other antibiotic agents; F17.210 Nicotine dependence, cigarettes, uncomplicated
CPT/HCPCS: 99283